=== PATIENT | female | born 1940 | race Caucasian/White ===

== ENCOUNTER → 2016-12-19 | Outpatient (CLI) | payer MEDICARE, OTHER ==
[~2016-12-19] MED LIST: ACET-1304; LEVO125T59; LOSA50TA26; PREMARIN
== END | disposition home or self-care (01) ==
LOC: LAB 09:30
PROVIDERS: ATTEND Family Medicine
DX: Z86.79 Personal history of other diseases of the circulatory system (principal)
CPT/HCPCS: 36415; 85652; 86141; 87040

== ENCOUNTER → 2017-03-04 | Outpatient (CLI) | payer MEDICARE, OTHER | END | disposition home or self-care (01) | LOC: XYW 10:24 | PROVIDERS: ATTEND Family Medicine | DX: I95.1 Orthostatic hypotension (principal); I31.3 Pericardial effusion (noninflammatory); I07.1 Rheumatic tricuspid insufficiency | CPT/HCPCS: 93306 ==

== ENCOUNTER → 2017-04-07 | Outpatient (CLI) | payer MEDICARE, OTHER | END | disposition home or self-care (01) | LOC: Rad HDHVI 10:07 | PROVIDERS: ATTEND Internal Medicine Cardiovascular Disease | DX: I95.9 Hypotension, unspecified (principal); E10.43 Type 1 diabetes mellitus with diabetic autonomic (poly)neuropathy | CPT/HCPCS: 93880 ==

== ENCOUNTER → 2017-04-21 | Outpatient (CLI) | payer MEDICARE, OTHER ==
[~2017-04-21] VITALS: Ht 170.2 cm; Wt 68.9 kg
[~2017-04-21] MED LIST changes: +D5W 5% IV SCH; +DIPYRIDAMOLE (5MG/ML) 10 ML VIAL IV ONE; +DIPYRIDAMOLE IV SCH
[2017-04-21 12:47] LABS: Basophils # (auto) 0 uL; Basophils % (auto) 0.6 % (0.0-2.0); CONDITION Y; Eosinophils # (auto) 0.2 uL; Eosinophils % (auto) 3.7 % (0.0-7.0); Hematocrit 39.2 % (36.0-46.0); Hemoglobin 12.9 g/dL (12.2-16.2); Lymphocytes # (auto) 1.7 uL; Lymphocytes % (auto) 27.8 % (10.0-50.0); Mean Corpuscular Hemoglobin 31.4 pg (28.0-32.0); Mean Corpuscular Hgb Conc. 32.9 g/dL (32.0-36.0); Mean Corpuscular Volume 95.4 fL (80.0-100.0); Monocytes # (auto) 0.6 uL; Monocytes % (auto) 9.9 % (0.0-12.0); Neutrophils # (auto) 3.6 uL; Platelet Count (auto) 302 10^3/uL (140-450); Red Cell Distribution Width 13.2 % (11.6-16.0); White Blood Cell 6.2 10^3/uL (4.4-10.8)
[2017-04-21 13:42] LABS: Albumin 3.6 g/dL (3.4-5.0); BUN/Creatinine Ratio 28.4; Calcium 9.2 mg/dL (8.5-10.1)
[2017-04-21 13:47] LABS: Bilirubin, Direct 0.1 mg/dL (0-0.2); Bilirubin, Total 0.5 mg/dL (0.2-1.0); Total Protein 7.2 g/dL (6.4-8.2)
== END | disposition home or self-care (01) ==
LOC: Rad HDHVI 07:51
PROVIDERS: ATTEND Internal Medicine Cardiovascular Disease
DX: E03.9 Hypothyroidism, unspecified (principal); I11.0 Hypertensive heart disease with heart failure; I50.9 Heart failure, unspecified; E11.9 Type 2 diabetes mellitus without complications; K74.1 Hepatic sclerosis; N39.0 Urinary tract infection, site not specified; E55.9 Vitamin D deficiency, unspecified; D64.9 Anemia, unspecified; E78.00 Pure hypercholesterolemia, unspecified; I31.3 Pericardial effusion (noninflammatory); I07.1 Rheumatic tricuspid insufficiency; Z82.79 Family history of other congenital malformations, deformations and chromosomal abnormalities
CPT/HCPCS: 36415; 78452; 80048; 80061; 80076; 82306; 82533; 83036; 84443; 85025; 93005; 96374; 96375; A9500; J1245

== ENCOUNTER → 2017-05-22 | Outpatient (CLI) | payer MEDICARE, OTHER ==
[~2017-05-22] MED LIST changes: -D5W 5% IV SCH; -DIPYRIDAMOLE (5MG/ML) 10 ML VIAL IV ONE; -DIPYRIDAMOLE IV SCH; +IOHEXOL 350 MG/ML 100ML IJ ONE
[2017-05-22 11:35] VITALS: BP 175/77
[2017-05-22 12:20] VITALS: BP 134/71
== END | disposition home or self-care (01) ==
LOC: Rad HDHVI 10:30
PROVIDERS: ATTEND Internal Medicine Cardiovascular Disease
DX: I67.82 Cerebral ischemia (principal); I65.21 Occlusion and stenosis of right carotid artery
CPT/HCPCS: 70496; 82565; G0463; Q9967

== ENCOUNTER 2017-06-24 11:53 | Inpatient (IN) | payer MEDICARE, BC ==
[~2017-06-24] VITALS: Ht 167.6 cm; Wt 70.0 kg
[~2017-06-24 11:53] MED LIST changes: -IOHEXOL 350 MG/ML 100ML IJ ONE
[2017-06-24] MEDS ORDERED: cloNIDine HCL 0.1 MG TAB ONE (16:26)
[2017-06-24] MEDS ORDERED: cloNIDine HCL 0.1 MG TAB PO ONE (16:45)
[2017-06-24 17:02] LABS: Basophils # (auto) 0.1 uL; Basophils % (auto) 0.6 % (0.0-2.0); Eosinophils # (auto) 0.3 uL; Hematocrit 39.1 % (36.0-46.0); Hemoglobin 13.2 g/dL (12.2-16.2); Lymphocytes # (auto) 2.5 uL; Mean Corpuscular Hemoglobin 32.1 pg (28.0-32.0); Mean Corpuscular Hgb Conc. 33.7 g/dL (32.0-36.0); Mean Corpuscular Volume 95.3 fL (80.0-100.0); Mean Platelet Volume 7.3 fL (6.9-10.8); Monocytes # (auto) 1.1 uL; Monocytes % (auto) 11.3 % (0.0-12.0); Neutrophils # (auto) 5.6 uL; Neutrophils % (auto) 59.1 % (37.0-80.0); Nucleated Red Blood Cells % 0.2 %; Platelet Count (auto) 316 10^3/uL (140-450); Red Cell Distribution Width 12.8 % (11.8-14.3); White Blood Cell 9.5 10^3/uL (4.4-10.8)
[2017-06-24 17:16] LABS: Albumin 3.3 g/dL (3.4-5.0); BUN/Creatinine Ratio 23.1; Bilirubin, Total 0.4 mg/dL (0.2-1.0); Calcium 9.3 mg/dL (8.5-10.1); Potassium 4.6 mmol/L (3.5-5.1)
[2017-06-24] MEDS ORDERED: ONDANSETRON HCL 4 MG/2 ML VIAL IV ONE (19:15)
[2017-06-24] MEDS ORDERED: SODIUM CHLORIDE 0.9% 1,000 ML IV ONE (19:15)
[2017-06-24 20:47] LABS: Urine Bilirubin Negative (Negative); Urine Blood Negative /uL (Negative); Urine Color Yellow (Yellow); Urine Glucose TRACE mg/dL (Normal); Urine Ketone 2+ (Negative); Urine Mucus FEW (None Seen); Urine Nitrite Negative (Negative); Urine RBC 1 /hpf (0 - 4); Urine Squamous Epithelial Cell FEW /hpf (<5); Urine Urobilinogen Normal (Negative); Urine pH 5.5 (5.0-8.0)
[2017-06-24] MEDS ORDERED: HYDROcodone-ACET 5/325MG TAB PO ONE (22:15)
[2017-06-24] MEDS ORDERED: NITROGLYCERIN 0.4 MG SL TAB SL PRN (22:30)
[2017-06-24] MEDS ORDERED: ONDANSETRON HCL 4 MG/2 ML VIAL IV PRN (22:30)
[2017-06-24] MEDS ORDERED: DEXTROSE (50%) 50ML SYRG IV PRN (22:30)
[2017-06-24] MEDS ORDERED: ACETAMINOPHEN 325 MG TAB PO PRN (22:30)
[2017-06-24] MEDS ORDERED: cefTRIAXone 1GM/50ML D5W 50 ML IV ONE (22:30)
[2017-06-24] MEDS ORDERED: MORPHINE SULF INJ 2 MG/ML SYRINGE 1ML IV PRN (22:30)
[2017-06-24] MEDS ORDERED: cloNIDine HCL 0.1 MG TAB PO PRN (22:30)
[2017-06-24] MEDS ORDERED: INSLISPI SC (23:35)
[2017-06-24] MEDS ORDERED: LEVO150T10 PO (23:36)
[2017-06-24] MEDS ORDERED: PROP60CA8 PO (23:40)
[2017-06-24] MEDS ORDERED: CHOL20007 OR (23:40)
[2017-06-24] MEDS ORDERED: CYAN500L3 PO (23:40)
[2017-06-24] MEDS ORDERED: LOSA50TA6 PO (23:40)
[2017-06-24] MEDS: SODIUM CHLORIDE 0.9% 1,000 ML IV SCH (23:45)
[2017-06-24] MEDS: ACCU-CHEK COMFORT CURVE STRIP VI SCH (23:51)
[2017-06-24] MEDS: InsuLIN REG 1unit/0.01ml Soln (100units/ml) SC SCH (23:51)
[2017-06-25 01:26] LABS: BUN/Creatinine Ratio 22.7; Calcium 8.3 mg/dL (8.5-10.1); Potassium 3.9 mmol/L (3.5-5.1)
[2017-06-25] MEDS: InsuLIN REG 1unit/0.01ml Soln (100units/ml) SC SCH ×3 (04:00→21:59)
[2017-06-25 04:11] LABS: Basophils # (auto) 0.1 uL; Basophils % (auto) 0.8 % (0.0-2.0); Eosinophils # (auto) 0.5 uL; Eosinophils % (auto) 5.2 % (0.0-7.0); Hematocrit 35.6 % (36.0-46.0); Hemoglobin 11.9 g/dL (12.2-16.2); Lymphocytes # (auto) 2.8 uL; Lymphocytes % (auto) 32.3 % (10.0-50.0); Mean Corpuscular Hemoglobin 31.8 pg (28.0-32.0); Mean Corpuscular Hgb Conc. 33.4 g/dL (32.0-36.0); Mean Corpuscular Volume 95.3 fL (80.0-100.0); Mean Platelet Volume 6.9 fL (6.9-10.8); Monocytes # (auto) 1.1 uL; Monocytes % (auto) 12.8 % (0.0-12.0); Neutrophils # (auto) 4.3 uL; Neutrophils % (auto) 48.9 % (37.0-80.0); Nucleated Red Blood Cells % 0.1 %; Platelet Count (auto) 263 10^3/uL (140-450); Red Cell Distribution Width 12.5 % (11.8-14.3); White Blood Cell 8.7 10^3/uL (4.4-10.8)
[2017-06-25] MEDS: ACCU-CHEK COMFORT CURVE STRIP VI SCH ×5 (04:21→21:59)
[2017-06-25 04:41] LABS: Albumin 2.6 g/dL (3.4-5.0); BUN/Creatinine Ratio 22.5; Calcium 8.4 mg/dL (8.5-10.1); Potassium 3.6 mmol/L (3.5-5.1)
[2017-06-25 04:44] LABS: Bilirubin, Total 0.3 mg/dL (0.2-1.0); Total Protein 6.2 g/dL (6.4-8.2)
[2017-06-25] MEDS: LEVOTHYROXINE SODIUM 50 MCG TAB PO SCH (07:23)
[2017-06-25 09:47] VITALS: BP 161/71
[2017-06-25] MEDS: ENOXAPARIN SOD 40 MG/0.4 ML SYRINGE SC SCH (10:00)
[2017-06-25] MEDS: SODIUM CHLORIDE 0.9% 1,000 ML IV SCH (10:54)
[2017-06-25] MEDS: HYDROcodone-ACET 5/325MG TAB PO PRN ×2 (12:39→20:38)
[2017-06-25] MEDS: FAMOTIDINE 20 MG TAB PO SCH ×2 (12:47→21:59)
[2017-06-25] MEDS: LOSARTAN POTASSIUM 50 MG TAB PO SCH (12:49)
[2017-06-25] MEDS ORDERED: DEXTROSE (50%) 50ML SYRG IV PRN (14:45)
[2017-06-25 17:00] VITALS: BP 119/75
[2017-06-25] MEDS ORDERED: TIZA4TAB3 PO (17:07)
[2017-06-25 22:00] VITALS: BP 156/67
[2017-06-25] MEDS ORDERED: cefTRIAXone 1GM/50ML D5W 50 ML IV SCH (22:00)
[2017-06-25] MEDS ORDERED: SODIUM CHLORIDE 0.9% 1,000 ML IV SCH (22:24)
[2017-06-26 05:00] VITALS: BP 125/50
[2017-06-26] MEDS: ACCU-CHEK COMFORT CURVE STRIP VI SCH ×2 (06:34→12:40)
[2017-06-26] MEDS: InsuLIN REG 1unit/0.01ml Soln (100units/ml) SC SCH ×2 (06:34→11:30)
[2017-06-26] MEDS: LEVOTHYROXINE SODIUM 50 MCG TAB PO SCH (06:34)
[2017-06-26 07:01] LABS: BUN/Creatinine Ratio 16.7; Calcium 8.5 mg/dL (8.5-10.1); Magnesium 2.2 mg/dL (1.6-2.6); Potassium 3.9 mmol/L (3.5-5.1)
[2017-06-26] MEDS: HYDROcodone-ACET 5/325MG TAB PO PRN (07:07)
[2017-06-26 08:00] VITALS: BP 161/71
[2017-06-26 09:00] VITALS: BP 128/70
[2017-06-26] MEDS: ENOXAPARIN SOD 40 MG/0.4 ML SYRINGE SC SCH (10:00)
[2017-06-26] MEDS: LOSARTAN POTASSIUM 50 MG TAB PO SCH (10:10)
[2017-06-26] MEDS: FAMOTIDINE 20 MG TAB PO SCH (10:11)
[2017-06-26] MEDS ORDERED: LACTULOSE 20Gm/30ML SOLN PO PRN (11:15)
[2017-06-26 12:09] VITALS: BP 128/70
[2017-06-26 13:00] VITALS: BP 148/76
== END 2017-06-26 15:20 | disposition home or self-care (01) | DRG 865 ==
LOC: ER 11:53 → TELE 11:54 → TELE-E-ADS 06-25 07:58 → TELE-WESTW 06-25 16:36
PROVIDERS: ADMIT Internal Medicine; ATTEND Internal Medicine
DX: B34.9 Viral infection, unspecified (principal); E11.10 Type 2 diabetes mellitus with ketoacidosis without coma; E87.1 Hypo-osmolality and hyponatremia; I11.0 Hypertensive heart disease with heart failure; I50.9 Heart failure, unspecified; E86.0 Dehydration; E11.65 Type 2 diabetes mellitus with hyperglycemia; E03.9 Hypothyroidism, unspecified; I87.8 Other specified disorders of veins; K59.00 Constipation, unspecified; M54.5 Low back pain; Z79.899 Other long term (current) drug therapy; Z88.6 Allergy status to analgesic agent; Z88.1 Allergy status to other antibiotic agents; Z88.5 Allergy status to narcotic agent; Z98.51 Tubal ligation status; Z80.9 Family history of malignant neoplasm, unspecified
CPT/HCPCS: 36415; 74000; 74176; 80048; 80053; 81001; 82010; 82962; 83036; 83735; 85025; 87086; 96361; 96374; 96375; J0696; J2405

== ENCOUNTER 2018-01-15 10:18 | Emergency (ER) | payer MEDICARE, OTHER ==
[~2018-01-15] VITALS: Ht 170.2 cm; Wt 68.0 kg
[~2018-01-15 10:18] MED LIST changes: +CHOL20007 OR; +CYAN500L3 PO; +INSLISPI SC; -LEVO125T59; +LEVO150T10 PO; -LOSA50TA26; +LOSA50TA6 PO; -PREMARIN; +PROP60CA8 PO; +TIZA4TAB3 PO
[2018-01-15 10:35] VITALS: BP 184/79
[2018-01-15] MEDS ORDERED: ASPirin 81 mg TAB PO ONE (10:45)
[2018-01-15] MEDS ORDERED: PANTOPRAZOLE 40 MG/10 ML VIAL IV ONE (10:45)
[2018-01-15 11:06] LABS: INR 0.95 (0.9-1.15); Partial Thromboplastin Time 28.6 sec (22.64-33.71); Prothrombin Time 10.3 sec (9.37-12.3)
[2018-01-15 11:11] LABS: Albumin 3.7 g/dL (3.4-5.0); Anion Gap 10 (5-15); Blood Urea Nitrogen 16 mg/dL (7-18); Calcium 9.4 mg/dL (8.5-10.1); Carbon Dioxide 26 mmol/L (21-32); Chloride 99 mmol/L (98-107); Glucose 175 mg/dL (74-106); Potassium 3.8 mmol/L (3.5-5.1); Sodium 135 mmol/L (136-145)
[2018-01-15 11:13] LABS: Alanine Aminotransferase 18 U/L (13-56); Aspartate Aminotransferase 19 U/L (15-37); BUN/Creatinine Ratio 23.9; GFR African American 109 mL/min; GFR Non-African American 90 mL/min
[2018-01-15 11:15] LABS: Alkaline Phosphatase 67 U/L (45-117); Bilirubin, Total 0.6 mg/dL (0.2-1.0)
[2018-01-15 11:33] LABS: Basophils # (auto) 0 uL; Basophils % (auto) 0.4 % (0.0-2.0); Eosinophils # (auto) 0.3 uL; Eosinophils % (auto) 3.6 % (0.0-7.0); Hematocrit 39.2 % (36.0-46.0); Hemoglobin 13.1 g/dL (12.2-16.2); Lymphocytes # (auto) 2.5 uL; Lymphocytes % (auto) 30.4 % (10.0-50.0); Mean Corpuscular Hemoglobin 31.6 pg (28.0-32.0); Mean Corpuscular Hgb Conc. 33.3 g/dL (32.0-36.0); Mean Corpuscular Volume 94.6 fL (80.0-100.0); Monocytes # (auto) 0.8 uL; Monocytes % (auto) 9.8 % (0.0-12.0); Neutrophils # (auto) 4.6 uL; Neutrophils % (auto) 55.8 % (37.0-80.0); Platelet Count (auto) 289 10^3/uL (140-450); Red Blood Cells 4.14 10^6/uL (4.0-5.20); Red Cell Distribution Width 12.8 % (11.8-14.3); White Blood Cell 8.2 10^3/uL (4.4-10.8)
== END 2018-01-15 12:35 | disposition home or self-care (01) ==
LOC: ER 10:18
DX: R07.89 Other chest pain (principal); K21.9 Gastro-esophageal reflux disease without esophagitis; I11.0 Hypertensive heart disease with heart failure; I50.9 Heart failure, unspecified; E11.9 Type 2 diabetes mellitus without complications; E78.5 Hyperlipidemia, unspecified; Z79.4 Long term (current) use of insulin; Z88.6 Allergy status to analgesic agent; Z88.8 Allergy status to other drugs, medicaments and biological substances; Z98.51 Tubal ligation status
CPT/HCPCS: 36415; 71045; 80053; 83735; 83880; 84484; 85025; 85610; 85730; 93005; 94761; 96374; 99285; C9113

== ENCOUNTER 2018-01-31 08:48 | Inpatient (IN) | payer MEDICARE, OTHER ==
[~2018-01-31] VITALS: Ht 170.2 cm; Wt 77.9 kg
[2018-01-31 09:33] LABS: Basophils # (auto) 0.1 uL; Basophils % (auto) 0.8 % (0.0-2.0); Eosinophils # (auto) 0.3 uL; Eosinophils % (auto) 3.2 % (0.0-7.0); Hematocrit 42.9 % (36.0-46.0); Hemoglobin 14.4 g/dL (12.2-16.2); Lymphocytes # (auto) 2.5 uL; Lymphocytes % (auto) 27.5 % (10.0-50.0); Mean Corpuscular Hemoglobin 31.7 pg (28.0-32.0); Mean Corpuscular Hgb Conc. 33.6 g/dL (32.0-36.0); Mean Corpuscular Volume 94.6 fL (80.0-100.0); Monocytes # (auto) 0.8 uL; Monocytes % (auto) 8.7 % (0.0-12.0); Neutrophils # (auto) 5.4 uL; Neutrophils % (auto) 59.8 % (37.0-80.0); Platelet Count (auto) 306 10^3/uL (140-450); Red Blood Cells 4.54 10^6/uL (4.0-5.20)
[2018-01-31 09:50] LABS: Blood Urea Nitrogen 14 mg/dL (7-18); Calcium 9.5 mg/dL (8.5-10.1); Chloride 100 mmol/L (98-107); Potassium 3.9 mmol/L (3.5-5.1); Sodium 137 mmol/L (136-145)
[2018-01-31 09:54] LABS: Alanine Aminotransferase 16 U/L (13-56); Albumin 3.7 g/dL (3.4-5.0); Anion Gap 10 (5-15); Aspartate Aminotransferase 17 U/L (15-37); Carbon Dioxide 27 mmol/L (21-32); GFR African American 104 mL/min; GFR Non-African American 86 mL/min; Glucose 154 mg/dL (74-106); Lipase 51 U/L (73-393)
[2018-01-31] MEDS ORDERED: SODIUM CHLORIDE 0.9% 1,000 ML IV ONE (09:57)
[2018-01-31 10:00] LABS: Alkaline Phosphatase 59 U/L (45-117); Bilirubin, Total 0.6 mg/dL (0.2-1.0); Total Protein 7.9 g/dL (6.4-8.2)
[2018-01-31] MEDS ORDERED: PANTOPRAZOLE 40 MG/10 ML VIAL IV ONE (10:00)
[2018-01-31] MEDS ORDERED: ONDANSETRON HCL 4 MG/2 ML VIAL IV ONE (10:00)
[2018-01-31] MEDS ORDERED: INSULIN PUMP SC (11:29)
[2018-01-31] MEDS ORDERED: HYDROmorphone HCL 2 MG/ML VL IV ONE (11:45)
[2018-01-31] MEDS ORDERED: METOCLOPRAMIDE HCL 5MG/ml INJ 2ml VIAL IV ONE (11:45)
[2018-01-31] MEDS ORDERED: TEMAZEPAM 15 MG CAP PO PRN (12:30)
[2018-01-31] MEDS ORDERED: NITROGLYCERIN 0.4 MG SL TAB SL PRN (12:30)
[2018-01-31] MEDS ORDERED: MORPHINE SULFATE 8mg/ml INJ SDV IV PRN (12:30)
[2018-01-31] MEDS ORDERED: ACETAMINOPHEN 325 MG TAB PO PRN (12:30)
[2018-01-31] MEDS ORDERED: cloNIDine HCL 0.1 MG TAB PO PRN (12:30)
[2018-01-31] MEDS ORDERED: PANTOPRAZOLE 40 MG TAB PO ONE (12:30)
[2018-01-31] MEDS ORDERED: DEXTROSE (50%) 50ML SYRG IV PRN (12:30)
[2018-01-31] MEDS ORDERED: FAMOTIDINE 20 MG TAB PO SCH (13:00)
[2018-01-31 13:35] VITALS: BP 171/77
[2018-01-31 13:40] LABS: Urine Bacteria NONE SEEN /hpf (None Seen); Urine Blood Negative /uL (Negative); Urine Specific Gravity 1.012 (1.001-1.035); Urine WBC 6 /hpf (0 - 5)
[2018-01-31] MEDS: PROPRANOLOL HCL 20 MG TAB PO SCH ×2 (15:06→15:08)
[2018-01-31] MEDS: TIZANIDINE 4MG PO SCH ×2 (15:06→21:25)
[2018-01-31] MEDS: SODIUM CHLOR 0.9% PF (SALINE LOCK) 10ML VIAL/SYR IV SCH ×2 (15:07→21:10)
[2018-01-31] MEDS: ONDANSETRON HCL 4 MG/2 ML VIAL IV PRN (16:21)
[2018-01-31] MEDS: HYDROcodone-ACET 5/325MG TAB PO PRN (16:22)
[2018-01-31] MEDS: ACCU-CHEK COMFORT CURVE STRIP VI SCH ×2 (16:24→21:27)
[2018-01-31] MEDS: InsuLIN REG 1unit/0.01ml Soln (100units/ml) SC SCH ×2 (16:25→21:25)
[2018-01-31 17:33] VITALS: BP 179/75
[2018-01-31] MEDS: HYDROmorphone HCL 2 MG/ML VL IV PRN ×2 (18:08→23:18)
[2018-01-31 18:45] VITALS: BP 145/64
[2018-01-31] MEDS ORDERED: VANCOMYCIN PER PHARMACY 0 MG IV SCH (20:45)
[2018-01-31] MEDS ORDERED: cefTRIAXone 1GM/10ml IVPUSH 10 ML IV ONE (20:45)
[2018-01-31] MEDS ORDERED: VANCOMYCIN 1GM/250ML 250 ML IV ONE (21:00)
[2018-01-31] MEDS: PANTOPRAZOLE 40 MG/10 ML VIAL IV SCH (21:10)
[2018-01-31 21:58] VITALS: BP 144/60
[2018-02-01 05:00] VITALS: BP 126/58
[2018-02-01] MEDS: SODIUM CHLOR 0.9% PF (SALINE LOCK) 10ML VIAL/SYR IV SCH ×3 (05:38→21:59)
[2018-02-01] MEDS: TIZANIDINE 4MG PO SCH ×3 (05:38→22:00)
[2018-02-01] MEDS: HYDROmorphone HCL 2 MG/ML VL IV PRN (05:39)
[2018-02-01] MEDS: InsuLIN REG 1unit/0.01ml Soln (100units/ml) SC SCH ×4 (05:45→22:00)
[2018-02-01] MEDS: ACCU-CHEK COMFORT CURVE STRIP VI SCH ×4 (05:46→22:35)
[2018-02-01] MEDS: PROPRANOLOL HCL 20 MG TAB PO SCH ×3 (06:20→22:00)
[2018-02-01] MEDS: LEVOTHYROXINE SODIUM 50 MCG TAB PO SCH (06:20)
[2018-02-01 06:50] LABS: Basophils # (auto) 0.1 uL; Basophils % (auto) 0.9 % (0.0-2.0); Eosinophils # (auto) 0.3 uL; Eosinophils % (auto) 4.3 % (0.0-7.0); Hematocrit 36.2 % (36.0-46.0); Lymphocytes # (auto) 2.8 uL; Lymphocytes % (auto) 38.3 % (10.0-50.0); Mean Corpuscular Hemoglobin 31.6 pg (28.0-32.0); Mean Corpuscular Hgb Conc. 33.2 g/dL (32.0-36.0); Mean Corpuscular Volume 95.4 fL (80.0-100.0); Monocytes # (auto) 0.8 uL; Neutrophils # (auto) 3.3 uL; Neutrophils % (auto) 45.5 % (37.0-80.0); Platelet Count (auto) 237 10^3/uL (140-450); Red Cell Distribution Width 13.1 % (11.8-14.3); White Blood Cell 7.2 10^3/uL (4.4-10.8)
[2018-02-01 07:08] LABS: Albumin 2.8 g/dL (3.4-5.0); BUN/Creatinine Ratio 17.4; Calcium 8.3 mg/dL (8.5-10.1); Potassium 3.6 mmol/L (3.5-5.1)
[2018-02-01 07:11] LABS: Bilirubin, Total 0.3 mg/dL (0.2-1.0); Total Protein 5.8 g/dL (6.4-8.2)
[2018-02-01 08:30] VITALS: BP 127/61
[2018-02-01 08:45] VITALS: BP 127/61
[2018-02-01] MEDS: CHOLECALCIFEROL (VITD3) 1,000 UNIT TAB PO SCH (09:36)
[2018-02-01] MEDS: PANTOPRAZOLE 40 MG/10 ML VIAL IV SCH ×2 (09:36→21:58)
[2018-02-01] MEDS: LOSARTAN POTASSIUM 50 MG TAB PO SCH (09:37)
[2018-02-01] MEDS: MULTIPLE VITAMIN TAB PO SCH (09:37)
[2018-02-01] MEDS: CYANOCOBALAMIN 500 MCG TAB PO SCH (09:37)
[2018-02-01] MEDS ORDERED: PANTOPRAZOLE 40 MG TAB PO SCH (10:00)
[2018-02-01 13:00] VITALS: BP 116/59
[2018-02-01] MEDS: HYDROcodone-ACET 5/325MG TAB PO PRN ×2 (15:59→23:03)
[2018-02-01] MEDS ORDERED: VANCOMYCIN 1GM/250ML 250 ML IV SCH (16:00)
[2018-02-01 17:00] VITALS: BP 162/70
[2018-02-01] MEDS: cefTRIAXone 1GM/10ml IVPUSH 10 ML IV SCH (21:59)
[2018-02-01 22:00] VITALS: BP 144/65
[2018-02-02 04:43] VITALS: BP 118/56
[2018-02-02] MEDS: SODIUM CHLOR 0.9% PF (SALINE LOCK) 10ML VIAL/SYR IV SCH ×3 (05:31→21:53)
[2018-02-02] MEDS: PROPRANOLOL HCL 20 MG TAB PO SCH ×3 (05:31→21:50)
[2018-02-02] MEDS: TIZANIDINE 4MG PO SCH ×4 (05:34→22:15)
[2018-02-02] MEDS: ACCU-CHEK COMFORT CURVE STRIP VI SCH ×4 (06:15→21:54)
[2018-02-02 06:37] LABS: Basophils # (auto) 0.1 uL; Basophils % (auto) 0.9 % (0.0-2.0); Eosinophils # (auto) 0.3 uL; Eosinophils % (auto) 4.3 % (0.0-7.0); Hematocrit 39.4 % (36.0-46.0); Hemoglobin 13.1 g/dL (12.2-16.2); Lymphocytes # (auto) 2.7 uL; Lymphocytes % (auto) 35.8 % (10.0-50.0); Mean Corpuscular Hemoglobin 31.5 pg (28.0-32.0); Mean Corpuscular Hgb Conc. 33.2 g/dL (32.0-36.0); Monocytes # (auto) 0.8 uL; Monocytes % (auto) 11.2 % (0.0-12.0); Neutrophils # (auto) 3.6 uL; Neutrophils % (auto) 47.8 % (37.0-80.0); Nucleated Red Blood Cells % 0.1 %; Platelet Count (auto) 282 10^3/uL (140-450); Red Blood Cells 4.15 10^6/uL (4.0-5.20); Red Cell Distribution Width 12.9 % (11.8-14.3); White Blood Cell 7.5 10^3/uL (4.4-10.8)
[2018-02-02 06:56] LABS: BUN/Creatinine Ratio 7.7; Magnesium 2.3 mg/dL (1.6-2.6); Potassium 3.9 mmol/L (3.5-5.1)
[2018-02-02] MEDS: InsuLIN REG 1unit/0.01ml Soln (100units/ml) SC SCH ×4 (07:00→21:53)
[2018-02-02] MEDS: LEVOTHYROXINE SODIUM 50 MCG TAB PO SCH (07:00)
[2018-02-02 08:00] VITALS: BP 157/62
[2018-02-02 08:42] LABS: Partial Thromboplastin Time 28.2 sec (23.78-33.04); Prothrombin Time 10.7 sec (9.27-12.13)
[2018-02-02] MEDS: PANTOPRAZOLE 40 MG/10 ML VIAL IV SCH (08:47)
[2018-02-02] MEDS: HYDROmorphone HCL 2 MG/ML VL IV PRN (08:47)
[2018-02-02 09:00] VITALS: BP 166/69
[2018-02-02] MEDS: ONDANSETRON HCL 4 MG/2 ML VIAL IV PRN (10:23)
[2018-02-02] MEDS ORDERED: LIDOCAINE VISCOUS 2% 15ML UD ONE (10:35)
[2018-02-02] MEDS ORDERED: SODIUM CHLORIDE LOCK 10 ML ONE (10:35)
[2018-02-02] MEDS ORDERED: fentaNYL CITRATE 100 MCG/2 ML VL ONE (10:35)
[2018-02-02] MEDS ORDERED: MIDAZOLAM HCL 5 MG/ML-1ML VIAL ONE (10:35)
[2018-02-02] MEDS ORDERED: diphenhdrAMINE HCL 50 MG/1 ML VL ONE (10:35)
[2018-02-02] MEDS: LOSARTAN POTASSIUM 50 MG TAB PO SCH (14:21)
[2018-02-02] MEDS: CYANOCOBALAMIN 500 MCG TAB PO SCH (14:22)
[2018-02-02] MEDS: MULTIPLE VITAMIN TAB PO SCH (14:22)
[2018-02-02] MEDS: CHOLECALCIFEROL (VITD3) 1,000 UNIT TAB PO SCH (14:22)
[2018-02-02 17:00] VITALS: BP 138/107
[2018-02-02] MEDS: cefTRIAXone 1GM/10ml IVPUSH 10 ML IV SCH (21:53)
[2018-02-02 22:00] VITALS: BP 147/61
[2018-02-02] MEDS: HYDROcodone-ACET 5/325MG TAB PO PRN (22:07)
[2018-02-02] MEDS ORDERED: D5W/ SOD CHL 0.9%/KCL 20MEQ 1,000 ML IV SCH (23:00)
[2018-02-03] VITALS (8 sets, daily range): BP systolic 142–167; BP diastolic 58–78
[2018-02-03] MEDS: InsuLIN REG 1unit/0.01ml Soln (100units/ml) SC SCH ×4 (05:49→22:00)
[2018-02-03] MEDS: SODIUM CHLOR 0.9% PF (SALINE LOCK) 10ML VIAL/SYR IV SCH ×3 (06:09→22:20)
[2018-02-03] MEDS: LEVOTHYROXINE SODIUM 50 MCG TAB PO SCH (06:10)
[2018-02-03] MEDS: PROPRANOLOL HCL 20 MG TAB PO SCH ×4 (06:10→22:21)
[2018-02-03] MEDS: HYDROcodone-ACET 5/325MG TAB PO PRN ×3 (06:10→22:28)
[2018-02-03] MEDS: ACCU-CHEK COMFORT CURVE STRIP VI SCH ×4 (06:11→22:25)
[2018-02-03] MEDS: cefTRIAXone 1GM/10ml IVPUSH 10 ML IV SCH (10:04)
[2018-02-03] MEDS: HYDROmorphone HCL 2 MG/ML VL IV PRN ×3 (10:04→22:28)
[2018-02-03] MEDS: LOSARTAN POTASSIUM 50 MG TAB PO SCH (10:05)
[2018-02-03] MEDS: AZITHROMYCIN 250 MG TAB PO SCH (10:05)
[2018-02-03] MEDS: CYANOCOBALAMIN 500 MCG TAB PO SCH (10:06)
[2018-02-03] MEDS: MULTIPLE VITAMIN TAB PO SCH (10:06)
[2018-02-03] MEDS: CHOLECALCIFEROL (VITD3) 1,000 UNIT TAB PO SCH (10:06)
[2018-02-03] MEDS: PANTOPRAZOLE 40 MG TAB PO SCH (10:06)
[2018-02-03] MEDS: ALBUTEROL SULF 2.5 MG/0.5ML(0.5%) NEB SOLN NEB SCH ×2 (12:16→18:52)
[2018-02-03] MEDS: TIZANIDINE 4MG PO SCH ×2 (14:00→22:00)
[2018-02-03] MEDS ORDERED: ACETYLCYSTEINE 10 %(100MG/ML) SOL 4ML NEB SCH (14:00)
[2018-02-03] MEDS: ACETYLCYSTEINE 10 %(100MG/ML) SOL 4ML NEB SCH (18:53)
[2018-02-03] MEDS ORDERED: POTASSIUM CHLORIDE 20 MEQ in D5W 5% 1,000 ML IV SCH (23:00)
[2018-02-04] MEDS: ACETYLCYSTEINE 10 %(100MG/ML) SOL 4ML NEB SCH ×4 (01:01→19:31)
[2018-02-04] MEDS: ALBUTEROL SULF 2.5 MG/0.5ML(0.5%) NEB SOLN NEB SCH ×4 (01:01→19:30)
[2018-02-04 05:00] VITALS: BP 147/72
[2018-02-04] MEDS: TIZANIDINE 4MG PO SCH ×3 (06:00→21:49)
[2018-02-04] MEDS: SODIUM CHLOR 0.9% PF (SALINE LOCK) 10ML VIAL/SYR IV SCH ×3 (06:11→21:51)
[2018-02-04] MEDS: LEVOTHYROXINE SODIUM 50 MCG TAB PO SCH (06:12)
[2018-02-04] MEDS: InsuLIN REG 1unit/0.01ml Soln (100units/ml) SC SCH ×4 (06:12→21:50)
[2018-02-04] MEDS: PROPRANOLOL HCL 20 MG TAB PO SCH ×3 (06:12→21:51)
[2018-02-04] MEDS: ACCU-CHEK COMFORT CURVE STRIP VI SCH ×4 (06:12→21:50)
[2018-02-04 06:23] LABS: Basophils # (auto) 0.1 uL; Basophils % (auto) 0.9 % (0.0-2.0); Eosinophils # (auto) 0.6 uL; Eosinophils % (auto) 7.9 % (0.0-7.0); Hematocrit 37.9 % (36.0-46.0); Hemoglobin 12.6 g/dL (12.2-16.2); Lymphocytes # (auto) 2.7 uL; Lymphocytes % (auto) 35.2 % (10.0-50.0); Mean Corpuscular Hemoglobin 31.6 pg (28.0-32.0); Mean Corpuscular Hgb Conc. 33.2 g/dL (32.0-36.0); Mean Corpuscular Volume 95.2 fL (80.0-100.0); Monocytes % (auto) 12.7 % (0.0-12.0); Neutrophils # (auto) 3.3 uL; Neutrophils % (auto) 43.3 % (37.0-80.0); Platelet Count (auto) 241 10^3/uL (140-450); Red Blood Cells 3.98 10^6/uL (4.0-5.20); Red Cell Distribution Width 13.1 % (11.8-14.3); White Blood Cell 7.6 10^3/uL (4.4-10.8)
[2018-02-04 06:35] LABS: Potassium 4.2 mmol/L (3.5-5.1)
[2018-02-04 06:39] LABS: Albumin 3.1 g/dL (3.4-5.0); BUN/Creatinine Ratio 13.2; Calcium 9.1 mg/dL (8.5-10.1)
[2018-02-04 06:44] LABS: Bilirubin, Total 0.3 mg/dL (0.2-1.0); Total Protein 6.6 g/dL (6.4-8.2)
[2018-02-04 08:10] VITALS: BP 158/72
[2018-02-04 08:42] VITALS: BP 162/80
[2018-02-04] MEDS: AZITHROMYCIN 250 MG TAB PO SCH (10:29)
[2018-02-04] MEDS: CYANOCOBALAMIN 500 MCG TAB PO SCH (10:29)
[2018-02-04] MEDS: PANTOPRAZOLE 40 MG TAB PO SCH (10:29)
[2018-02-04] MEDS: CHOLECALCIFEROL (VITD3) 1,000 UNIT TAB PO SCH (10:29)
[2018-02-04] MEDS: LOSARTAN POTASSIUM 50 MG TAB PO SCH (10:30)
[2018-02-04] MEDS: MULTIPLE VITAMIN TAB PO SCH (10:30)
[2018-02-04] MEDS: amLODIPine BESYLATE 5 MG TAB PO SCH (10:45)
[2018-02-04] MEDS: DOCUSATE SOD 100 MG CAP PO PRN (10:52)
[2018-02-04 12:36] VITALS: BP 178/76
[2018-02-04 17:00] VITALS: BP 155/68
[2018-02-04] MEDS: cefTRIAXone 1GM/10ml IVPUSH 10 ML IV SCH (21:51)
[2018-02-04 22:00] VITALS: BP 132/59
[2018-02-04] MEDS: HYDROcodone-ACET 5/325MG TAB PO PRN (22:21)
[2018-02-05] MEDS: ALBUTEROL SULF 2.5 MG/0.5ML(0.5%) NEB SOLN NEB SCH ×2 (00:36→07:29)
[2018-02-05] MEDS: ACETYLCYSTEINE 10 %(100MG/ML) SOL 4ML NEB SCH ×2 (00:36→07:29)
[2018-02-05 05:00] VITALS: BP 150/77
[2018-02-05] MEDS: SODIUM CHLOR 0.9% PF (SALINE LOCK) 10ML VIAL/SYR IV SCH ×3 (05:24→22:20)
[2018-02-05] MEDS: TIZANIDINE 4MG PO SCH ×3 (05:24→22:00)
[2018-02-05] MEDS: HYDROmorphone HCL 2 MG/ML VL IV PRN ×3 (05:25→22:21)
[2018-02-05] MEDS: PROPRANOLOL HCL 20 MG TAB PO SCH ×3 (05:25→22:21)
[2018-02-05] MEDS: InsuLIN REG 1unit/0.01ml Soln (100units/ml) SC SCH ×4 (06:34→22:00)
[2018-02-05] MEDS: LEVOTHYROXINE SODIUM 50 MCG TAB PO SCH (06:34)
[2018-02-05] MEDS: ACCU-CHEK COMFORT CURVE STRIP VI SCH ×4 (06:35→22:20)
[2018-02-05 08:10] VITALS: BP 139/68
[2018-02-05 09:00] VITALS: BP 139/68
[2018-02-05] MEDS: AZITHROMYCIN 250 MG TAB PO SCH (10:21)
[2018-02-05] MEDS: MULTIPLE VITAMIN TAB PO SCH (10:21)
[2018-02-05] MEDS: LOSARTAN POTASSIUM 50 MG TAB PO SCH (10:23)
[2018-02-05] MEDS: amLODIPine BESYLATE 5 MG TAB PO SCH (10:23)
[2018-02-05] MEDS: CYANOCOBALAMIN 500 MCG TAB PO SCH (10:24)
[2018-02-05] MEDS: PANTOPRAZOLE 40 MG TAB PO SCH (10:24)
[2018-02-05] MEDS: CHOLECALCIFEROL (VITD3) 1,000 UNIT TAB PO SCH (10:24)
[2018-02-05 13:00] VITALS: BP 159/68
[2018-02-05] MEDS: DOCUSATE SOD 100 MG CAP PO PRN (13:48)
[2018-02-05 17:00] VITALS: BP 142/61
[2018-02-05 22:00] VITALS: BP 149/70
[2018-02-05] MEDS: cefTRIAXone 1GM/10ml IVPUSH 10 ML IV SCH (22:20)
[2018-02-06 05:00] VITALS: BP 145/69
[2018-02-06 05:17] LABS: Basophils # (auto) 0.1 uL; Basophils % (auto) 0.9 % (0.0-2.0); Eosinophils # (auto) 0.5 uL; Eosinophils % (auto) 6.1 % (0.0-7.0); Hematocrit 38.8 % (36.0-46.0); Hemoglobin 13.1 g/dL (12.2-16.2); Lymphocytes % (auto) 37.2 % (10.0-50.0); Mean Corpuscular Hemoglobin 31.7 pg (28.0-32.0); Mean Corpuscular Hgb Conc. 33.6 g/dL (32.0-36.0); Mean Corpuscular Volume 94.3 fL (80.0-100.0); Monocytes # (auto) 0.8 uL; Monocytes % (auto) 10.1 % (0.0-12.0); Neutrophils # (auto) 3.6 uL; Neutrophils % (auto) 45.7 % (37.0-80.0); Platelet Count (auto) 260 10^3/uL (140-450); Red Blood Cells 4.12 10^6/uL (4.0-5.20); Red Cell Distribution Width 12.9 % (11.8-14.3)
[2018-02-06 05:42] LABS: Albumin 3.2 g/dL (3.4-5.0); BUN/Creatinine Ratio 19.1; Bilirubin, Total 0.3 mg/dL (0.2-1.0); Calcium 8.8 mg/dL (8.5-10.1); Potassium 4.4 mmol/L (3.5-5.1); Total Protein 6.6 g/dL (6.4-8.2)
[2018-02-06] MEDS: TIZANIDINE 4MG PO SCH ×3 (06:00→21:24)
[2018-02-06] MEDS: PROPRANOLOL HCL 20 MG TAB PO SCH ×3 (06:15→21:24)
[2018-02-06] MEDS: LEVOTHYROXINE SODIUM 50 MCG TAB PO SCH (06:15)
[2018-02-06] MEDS: SODIUM CHLOR 0.9% PF (SALINE LOCK) 10ML VIAL/SYR IV SCH ×3 (06:16→21:25)
[2018-02-06] MEDS: InsuLIN REG 1unit/0.01ml Soln (100units/ml) SC SCH ×4 (06:16→21:37)
[2018-02-06] MEDS: ACCU-CHEK COMFORT CURVE STRIP VI SCH ×4 (06:16→21:25)
[2018-02-06] MEDS: HYDROcodone-ACET 5/325MG TAB PO PRN (07:44)
[2018-02-06] MEDS: DOCUSATE SOD 100 MG CAP PO PRN (07:45)
[2018-02-06 08:00] VITALS: BP 145/69
[2018-02-06 09:00] VITALS: BP 160/74
[2018-02-06] MEDS: CHOLECALCIFEROL (VITD3) 1,000 UNIT TAB PO SCH (10:59)
[2018-02-06] MEDS: MULTIPLE VITAMIN TAB PO SCH (11:00)
[2018-02-06] MEDS: LOSARTAN POTASSIUM 50 MG TAB PO SCH (11:00)
[2018-02-06] MEDS: AZITHROMYCIN 250 MG TAB PO SCH (11:00)
[2018-02-06] MEDS: PANTOPRAZOLE 40 MG TAB PO SCH (11:01)
[2018-02-06] MEDS: amLODIPine BESYLATE 5 MG TAB PO SCH (11:02)
[2018-02-06] MEDS: CYANOCOBALAMIN 500 MCG TAB PO SCH (11:03)
[2018-02-06 13:00] VITALS: BP 149/70
[2018-02-06] MEDS ORDERED: LACTULOSE 20Gm/30ML SOLN PO ONE (13:00)
[2018-02-06] MEDS ORDERED: DOCUSATE SOD 100 MG CAP PO PRN (13:15)
[2018-02-06] MEDS: PIPERACILLIN-TAZOB 3.375GM 100 ML IV SCH ×2 (14:28→20:15)
[2018-02-06 17:00] VITALS: BP 151/69
[2018-02-06 23:00] VITALS: BP 158/70
[2018-02-07] MEDS: PIPERACILLIN-TAZOB 3.375GM 100 ML IV SCH ×4 (01:34→19:32)
[2018-02-07 05:00] VITALS: BP 137/59
[2018-02-07] MEDS: PROPRANOLOL HCL 20 MG TAB PO SCH ×3 (05:57→21:57)
[2018-02-07] MEDS: SODIUM CHLOR 0.9% PF (SALINE LOCK) 10ML VIAL/SYR IV SCH ×3 (05:58→21:55)
[2018-02-07] MEDS: ACCU-CHEK COMFORT CURVE STRIP VI SCH ×4 (05:58→22:58)
[2018-02-07] MEDS: TIZANIDINE 4MG PO SCH ×3 (05:58→21:55)
[2018-02-07] MEDS: LEVOTHYROXINE SODIUM 50 MCG TAB PO SCH (05:58)
[2018-02-07] MEDS: InsuLIN REG 1unit/0.01ml Soln (100units/ml) SC SCH ×4 (06:24→22:00)
[2018-02-07] MEDS: HYDROcodone-ACET 5/325MG TAB PO PRN ×2 (06:54→17:45)
[2018-02-07 08:00] VITALS: BP 146/67
[2018-02-07] MEDS: CYANOCOBALAMIN 500 MCG TAB PO SCH (10:00)
[2018-02-07] MEDS: PANTOPRAZOLE 40 MG TAB PO SCH (11:50)
[2018-02-07] MEDS: CHOLECALCIFEROL (VITD3) 1,000 UNIT TAB PO SCH (11:50)
[2018-02-07] MEDS: AZITHROMYCIN 250 MG TAB PO SCH (11:50)
[2018-02-07] MEDS: MULTIPLE VITAMIN TAB PO SCH (11:50)
[2018-02-07] MEDS: amLODIPine BESYLATE 5 MG TAB PO SCH (11:51)
[2018-02-07 12:00] VITALS: BP 136/60
[2018-02-07] MEDS: LOSARTAN POTASSIUM 50 MG TAB PO SCH (12:30)
[2018-02-07 15:00] VITALS: BP 133/59
[2018-02-07 22:10] VITALS: BP 112/56
[2018-02-08] MEDS: PIPERACILLIN-TAZOB 3.375GM 100 ML IV SCH (02:05)
[2018-02-08] MEDS: HYDROcodone-ACET 5/325MG TAB PO PRN (02:06)
[2018-02-08] MEDS: TIZANIDINE 4MG PO SCH ×3 (06:00→21:37)
[2018-02-08 06:03] VITALS: BP 143/61
[2018-02-08] MEDS: SODIUM CHLOR 0.9% PF (SALINE LOCK) 10ML VIAL/SYR IV SCH ×3 (06:07→21:59)
[2018-02-08] MEDS: PROPRANOLOL HCL 20 MG TAB PO SCH ×3 (06:08→21:59)
[2018-02-08] MEDS: LEVOTHYROXINE SODIUM 50 MCG TAB PO SCH (06:08)
[2018-02-08] MEDS: ACCU-CHEK COMFORT CURVE STRIP VI SCH ×4 (06:09→21:59)
[2018-02-08] MEDS: InsuLIN REG 1unit/0.01ml Soln (100units/ml) SC SCH ×4 (06:42→22:00)
[2018-02-08 06:51] LABS: Basophils # (auto) 0.1 uL; Eosinophils # (auto) 0.5 uL; Hematocrit 37.9 % (36.0-46.0); Hemoglobin 12.7 g/dL (12.2-16.2); Lymphocytes # (auto) 2.4 uL; Lymphocytes % (auto) 31.9 % (10.0-50.0); Mean Corpuscular Hemoglobin 31.8 pg (28.0-32.0); Mean Corpuscular Hgb Conc. 33.4 g/dL (32.0-36.0); Mean Corpuscular Volume 95.4 fL (80.0-100.0); Monocytes # (auto) 0.8 uL; Neutrophils # (auto) 3.8 uL; Neutrophils % (auto) 50.1 % (37.0-80.0); Nucleated Red Blood Cells % 0.1 %; Platelet Count (auto) 244 10^3/uL (140-450); Red Blood Cells 3.98 10^6/uL (4.0-5.20); Red Cell Distribution Width 12.9 % (11.8-14.3); White Blood Cell 7.7 10^3/uL (4.4-10.8)
[2018-02-08 06:56] LABS: INR 0.98 (0.9-1.15); Partial Thromboplastin Time 28.9 sec (23.78-33.04); Prothrombin Time 10.5 sec (9.27-12.13)
[2018-02-08 07:02] LABS: BUN/Creatinine Ratio 24.2; Calcium 8.8 mg/dL (8.5-10.1); Potassium 4.1 mmol/L (3.5-5.1)
[2018-02-08 07:21] VITALS: BP 149/69
[2018-02-08 08:00] VITALS: BP 149/69
[2018-02-08] MEDS ORDERED: TEMAZEPAM 15 MG CAP PO PRN (09:30)
[2018-02-08] MEDS ORDERED: hydrALAZINE HCL 20 MG/ML VL IV PRN (09:30)
[2018-02-08] MEDS ORDERED: HYDROmorphone HCL 2 MG/ML VL IV PRN (09:30)
[2018-02-08] MEDS ORDERED: HYDROcodone-ACET 5/325MG TAB PO PRN (09:30)
[2018-02-08] MEDS ORDERED: LIDOCAINE HCL 2 %PF INJ 10ML AMP IJ ONE (09:36)
[2018-02-08] MEDS ORDERED: ETOMIDATE (2MG/ML) 20ML VIAL IV ONE (09:37)
[2018-02-08] MEDS ORDERED: ROCURONIUM 10MG/ML 10ML VIAL IV ONE (09:41)
[2018-02-08] MEDS: MULTIPLE VITAMIN TAB PO SCH (10:00)
[2018-02-08] MEDS: CYANOCOBALAMIN 500 MCG TAB PO SCH (10:00)
[2018-02-08] MEDS: CHOLECALCIFEROL (VITD3) 1,000 UNIT TAB PO SCH (10:00)
[2018-02-08] MEDS: amLODIPine BESYLATE 5 MG TAB PO SCH (10:00)
[2018-02-08] MEDS: PANTOPRAZOLE 40 MG TAB PO SCH (10:00)
[2018-02-08] MEDS: LOSARTAN POTASSIUM 50 MG TAB PO SCH (10:00)
[2018-02-08] MEDS ORDERED: CEFAZOLIN IV ONE (10:15)
[2018-02-08] MEDS ORDERED: D5W 5% IV ONE (10:15)
[2018-02-08] MEDS ORDERED: SUCCINYLCHOLINE CHLORIDE 20 MG/ML 10ML VIAL IV ONE (10:26)
[2018-02-08] MEDS ORDERED: MIDAZOLAM HCL 1MG/1ML-2 ML VIAL ONE (10:29)
[2018-02-08] MEDS ORDERED: ACCU-CHEK COMFORT CURVE STRIP VI ONE (10:45)
[2018-02-08] MEDS ORDERED: ONDANSETRON HCL 4 MG/2 ML VIAL IV ONE (10:45)
[2018-02-08] MEDS ORDERED: ePHEDrine SULFATE 50 MG/ML AMP ONE (10:51)
[2018-02-08] MEDS ORDERED: fentaNYL CITRATE 100 MCG/2 ML VL ONE (10:55)
[2018-02-08] MEDS ORDERED: GLYCOPYRROLATE 0.2 MG/ML 1ML VIAL ONE (11:13)
[2018-02-08] MEDS ORDERED: NEOSTIGMINE 1 MG/ML INJ (10mg/10ML VIAL) ONE (11:13)
[2018-02-08] MEDS: HYDROmorphone HCL 2 MG/ML VL IV PRN ×6 (11:40→12:43)
[2018-02-08] MEDS ORDERED: hydrALAZINE HCL 20 MG/ML VL IV ONE (12:10)
[2018-02-08] MEDS: ONDANSETRON HCL 4 MG/2 ML VIAL IV PRN (14:40)
[2018-02-08 16:00] VITALS: BP 151/57
[2018-02-08 22:00] VITALS: BP 126/50
[2018-02-09 04:48] VITALS: BP 123/55
[2018-02-09 05:58] LABS: Basophils # (auto) 0 uL; Basophils % (auto) 0.3 % (0.0-2.0); Eosinophils # (auto) 0.1 uL; Eosinophils % (auto) 1.3 % (0.0-7.0); Hematocrit 38.3 % (36.0-46.0); Hemoglobin 12.7 g/dL (12.2-16.2); Lymphocytes # (auto) 1.7 uL; Mean Corpuscular Hemoglobin 31.6 pg (28.0-32.0); Mean Corpuscular Hgb Conc. 33.3 g/dL (32.0-36.0); Mean Corpuscular Volume 94.8 fL (80.0-100.0); Monocytes # (auto) 0.9 uL; Monocytes % (auto) 9.5 % (0.0-12.0); Neutrophils # (auto) 7.1 uL; Neutrophils % (auto) 71.9 % (37.0-80.0); Nucleated Red Blood Cells % 0.1 %; Platelet Count (auto) 255 10^3/uL (140-450); Red Blood Cells 4.04 10^6/uL (4.0-5.20); Red Cell Distribution Width 13.2 % (11.8-14.3); White Blood Cell 9.9 10^3/uL (4.4-10.8)
[2018-02-09] MEDS: TIZANIDINE 4MG PO SCH (06:00)
[2018-02-09 06:13] LABS: Calcium 8.5 mg/dL (8.5-10.1)
[2018-02-09 06:15] LABS: BUN/Creatinine Ratio 31.5
[2018-02-09] MEDS: SODIUM CHLOR 0.9% PF (SALINE LOCK) 10ML VIAL/SYR IV SCH (06:47)
[2018-02-09] MEDS: ACCU-CHEK COMFORT CURVE STRIP VI SCH ×2 (06:48→11:11)
[2018-02-09] MEDS: PROPRANOLOL HCL 20 MG TAB PO SCH (06:48)
[2018-02-09] MEDS: LEVOTHYROXINE SODIUM 50 MCG TAB PO SCH (06:48)
[2018-02-09] MEDS: InsuLIN REG 1unit/0.01ml Soln (100units/ml) SC SCH ×2 (06:48→11:11)
[2018-02-09 07:31] VITALS: BP 125/47
[2018-02-09 09:00] VITALS: BP 125/44
[2018-02-09] MEDS: CHOLECALCIFEROL (VITD3) 1,000 UNIT TAB PO SCH (09:37)
[2018-02-09] MEDS: MULTIPLE VITAMIN TAB PO SCH (09:37)
[2018-02-09] MEDS: LOSARTAN POTASSIUM 50 MG TAB PO SCH (09:37)
[2018-02-09] MEDS: PANTOPRAZOLE 40 MG TAB PO SCH (09:38)
[2018-02-09] MEDS: amLODIPine BESYLATE 5 MG TAB PO SCH (09:38)
[2018-02-09] MEDS: CYANOCOBALAMIN 500 MCG TAB PO SCH (10:00)
[2018-02-09] MEDS ORDERED: PANT40T PO (10:42)
== END 2018-02-09 14:00 | disposition home or self-care (01) | DRG 417 ==
LOC: ER 08:48 → TELE-WESTW 08:49 → WEST WING 02-02 17:25
PROVIDERS: ADMIT Internal Medicine; ATTEND Internal Medicine
PROC: 0DB78ZX Excision of Stomach, Pylorus, Via Natural or Artificial Opening Endoscopic, Diagnostic (ICD-10-PCS; principal; 2018-02-02 12:05)
PROC: 0FT44ZZ Resection of Gallbladder, Percutaneous Endoscopic Approach (ICD-10-PCS; 2018-02-08)
DX: K82.8 Other specified diseases of gallbladder (principal); J69.0 Pneumonitis due to inhalation of food and vomit; G93.41 Metabolic encephalopathy; E44.1 Mild protein-calorie malnutrition; I13.0 Hypertensive heart and chronic kidney disease with heart failure and stage 1 through stage 4 chronic kidney disease, or unspecified chronic kidney disease; J98.11 Atelectasis; E11.21 Type 2 diabetes mellitus with diabetic nephropathy; E11.649 Type 2 diabetes mellitus with hypoglycemia without coma; K81.1 Chronic cholecystitis; I50.9 Heart failure, unspecified; E03.9 Hypothyroidism, unspecified; E78.5 Hyperlipidemia, unspecified; J44.9 Chronic obstructive pulmonary disease, unspecified; N18.2 Chronic kidney disease, stage 2 (mild); E11.22 Type 2 diabetes mellitus with diabetic chronic kidney disease; E06.3 Autoimmune thyroiditis; G24.9 Dystonia, unspecified; I25.10 Atherosclerotic heart disease of native coronary artery without angina pectoris; K21.9 Gastro-esophageal reflux disease without esophagitis; Z79.4 Long term (current) use of insulin; Z87.891 Personal history of nicotine dependence; Z96.41 Presence of insulin pump (external) (internal); Z88.6 Allergy status to analgesic agent; Z88.8 Allergy status to other drugs, medicaments and biological substances; Z88.5 Allergy status to narcotic agent; Z79.899 Other long term (current) drug therapy; Z98.51 Tubal ligation status; Z68.26 Body mass index [BMI] 26.0-26.9, adult
CPT/HCPCS: 36415; 71045; 71250; 74176; 76705; 78226; 80048; 80053; 81001; 82247; 82962; 83036; 83690; 83735; 83880; 84443; 84484; 85025; 85610; 85730; 86850; 86900; 86901; 87040; 87205; 93005; 93306; 94640; 96374; 96375; C9113; J0330; J0690; J2250; J2405; J2543; J7060

== ENCOUNTER 2018-04-05 08:43 | Emergency (ER) | payer MEDICARE, OTHER ==
[~2018-04-05] VITALS: Ht 170.2 cm; Wt 64.4 kg
[~2018-04-05 08:43] MED LIST changes: +INSULIN PUMP SC; +PANT40T PO; +PROP60CA34 PO; -PROP60CA8 PO; -TIZA4TAB3 PO
[2018-04-05 09:24] LABS: Urine Bacteria FEW /hpf (None Seen); Urine Blood Negative /uL (Negative); Urine Mucus FEW (None Seen); Urine Specific Gravity 1.023 (1.001-1.035); Urine WBC 23 /hpf (0 - 5)
[2018-04-05 09:40] LABS: Hematocrit 41.5 % (36.0-46.0); Hemoglobin 13.7 g/dL (12.2-16.2); Mean Corpuscular Hemoglobin 31.6 pg (28.0-32.0); Mean Corpuscular Volume 95.8 fL (80.0-100.0); Platelet Count (auto) 283 10^3/uL (140-450); Red Blood Cells 4.34 10^6/uL (4.0-5.20); Red Cell Distribution Width 13.3 % (11.8-14.3)
[2018-04-05 09:42] LABS: Band Neutrophils % (manual) 0; Basophils % (manual) 0 (0.0-2.0); Blast Cells 0; Metamyelocytes % 0; Myelocytes % 0; Promyelocytes % 0; Reactive Lymphocytes 0
[2018-04-05 09:58] LABS: Albumin 3.7 g/dL (3.4-5.0); BUN/Creatinine Ratio 18.2; Bilirubin, Total 0.5 mg/dL (0.2-1.0); Calcium 9.2 mg/dL (8.5-10.1); Potassium 4.4 mmol/L (3.5-5.1); Total Protein 7.1 g/dL (6.4-8.2)
[2018-04-05 10:31] LABS: Eosinophils % (manual) 18 (0-7); Lymphocytes % (manual) 37 (10.0-50.0); Monocytes % (manual) 7 (0-12)
[2018-04-05] MEDS ORDERED: DOCUSATE SOD 100 MG CAP PO ONE (12:30)
[2018-04-05] MEDS ORDERED: ONDANSETRON ODT 4 MG TAB PO ONE (12:30)
[2018-04-05 12:57] VITALS: BP 181/89
== END 2018-04-05 12:30 | disposition home or self-care (01) ==
LOC: ER 08:43
DX: N39.0 Urinary tract infection, site not specified (principal); E11.9 Type 2 diabetes mellitus without complications; E78.5 Hyperlipidemia, unspecified; I10 Essential (primary) hypertension; Z90.49 Acquired absence of other specified parts of digestive tract; Z98.51 Tubal ligation status
CPT/HCPCS: 36415; 74176; 80053; 81001; 85007; 85027; 93005; 99285; Q0162

== ENCOUNTER → 2018-05-21 | Outpatient (CLI) | payer MEDICARE, BC ==
[~2018-05-21] MED LIST changes: +LOSA-46 PO; -LOSA50TA6 PO
== END | disposition home or self-care (01) ==
LOC: Rad HDHVI 15:01
PROVIDERS: ATTEND Internal Medicine Cardiovascular Disease
DX: I07.1 Rheumatic tricuspid insufficiency (principal); I10 Essential (primary) hypertension; E11.9 Type 2 diabetes mellitus without complications; J44.9 Chronic obstructive pulmonary disease, unspecified; Z88.6 Allergy status to analgesic agent
CPT/HCPCS: 93306

== ENCOUNTER → 2018-06-07 | Outpatient (CLI) | payer MEDICARE, BC ==
[~2018-06-07] VITALS: Ht 170.2 cm; Wt 62.1 kg
[~2018-06-07] MED LIST changes: +ADENOSINE 52 MG in GIVE UN-DILUTED 0 ML IV ONE; +ADENOSINE 90 MG/30 ML INJ IV ONE
== END | disposition home or self-care (01) ==
LOC: Rad HDHVI 13:53
PROVIDERS: ATTEND Internal Medicine Cardiovascular Disease
DX: E11.42 Type 2 diabetes mellitus with diabetic polyneuropathy (principal); R07.89 Other chest pain; I95.1 Orthostatic hypotension; E11.40 Type 2 diabetes mellitus with diabetic neuropathy, unspecified
CPT/HCPCS: 78452; 93005; 96374; 96375; A9500; J0153

== ENCOUNTER → 2019-02-02 | Outpatient (CLI) | payer MEDICARE, BC ==
[~2019-02-02] MED LIST changes: -ADENOSINE 52 MG in GIVE UN-DILUTED 0 ML IV ONE; -ADENOSINE 90 MG/30 ML INJ IV ONE
[2019-02-02 10:24] LABS: Urine Bacteria NONE SEEN /hpf (None Seen); Urine Blood Negative /uL (Negative); Urine Specific Gravity 1.015 (1.001-1.035); Urine WBC 5 /hpf (0 - 5)
[2019-02-02 10:35] LABS: Basophils # (auto) 0.1 uL; Basophils % (auto) 1.1 % (0.0-2.0); Eosinophils # (auto) 0.4 uL; Eosinophils % (auto) 5.2 % (0.0-7.0); Hematocrit 39.4 % (36.0-46.0); Hemoglobin 13.1 g/dL (12.2-16.2); Lymphocytes # (auto) 2.6 uL; Lymphocytes % (auto) 38.1 % (10.0-50.0); Mean Corpuscular Hemoglobin 31.6 pg (28.0-32.0); Mean Corpuscular Hgb Conc. 33.3 g/dL (32.0-36.0); Mean Corpuscular Volume 94.8 fL (80.0-100.0); Monocytes # (auto) 0.7 uL; Monocytes % (auto) 9.9 % (0.0-12.0); Neutrophils # (auto) 3.1 uL; Neutrophils % (auto) 45.7 % (37.0-80.0); Platelet Count (auto) 266 10^3/uL (140-450); Red Blood Cells 4.15 10^6/uL (4.0-5.20); Red Cell Distribution Width 13.1 % (11.8-14.3); White Blood Cell 6.7 10^3/uL (4.4-10.8)
[2019-02-02 11:12] LABS: Albumin 3.3 g/dL (3.4-5.0); BUN/Creatinine Ratio 31.7; Calcium 9.3 mg/dL (8.5-10.1); Potassium 4.7 mmol/L (3.5-5.1)
[2019-02-02 11:17] LABS: Bilirubin, Total 0.4 mg/dL (0.2-1.0)
== END | disposition home or self-care (01) ==
LOC: LAB 09:04
PROVIDERS: ATTEND Nurse Practitioner
DX: E78.5 Hyperlipidemia, unspecified (principal); E11.9 Type 2 diabetes mellitus without complications
CPT/HCPCS: 36415; 80053; 80061; 81001; 83036; 84443; 85025

== ENCOUNTER → 2019-06-14 | Outpatient (CLI) | payer MEDICARE, BC ==
[~2019-06-14] MED LIST changes: -LOSA-46 PO; +LOSA-69 PO
[2019-06-14 11:21] LABS: Urine Bacteria NONE SEEN /hpf (None Seen); Urine Blood TRACE /uL (Negative); Urine Specific Gravity 1.021 (1.001-1.035); Urine WBC 262 /hpf (0 - 5)
== END | disposition home or self-care (01) ==
LOC: LAB 11:02
PROVIDERS: ATTEND Nurse Practitioner
DX: N39.0 Urinary tract infection, site not specified (principal)
CPT/HCPCS: 81001; 87086

== ENCOUNTER → 2019-11-07 | Outpatient (CLI) | payer MEDICARE, BC ==
[2019-11-07 10:38] LABS: Basophils # (auto) 0.1 10 ^3/uL (0-0.2); Basophils % (auto) 1.1 % (0.0-2.0); Eosinophils # (auto) 0.4 10 ^3/uL (0-0.8); Eosinophils % (auto) 5.1 % (0.0-7.0); Hematocrit 41.9 % (36.0-46.0); Hemoglobin 13.9 g/dL (12.2-16.2); Lymphocytes # (auto) 2.1 10 ^3/uL (0.4-5.4); Lymphocytes % (auto) 27.4 % (10.0-50.0); Mean Corpuscular Hemoglobin 31.6 pg (28.0-32.0); Mean Corpuscular Hgb Conc. 33.3 g/dL (32.0-36.0); Mean Corpuscular Volume 95.1 fL (80.0-100.0); Monocytes # (auto) 0.7 10 ^3/uL (0-1.3); Monocytes % (auto) 9.3 % (0.0-12.0); Neutrophils # (auto) 4.3 10 ^3/uL (1.6-8.6); Neutrophils % (auto) 57.1 % (37.0-80.0); Platelet Count (auto) 328 10^3/uL (140-450); Red Blood Cells 4.41 10^6/uL (4.0-5.20); Red Cell Distribution Width 12.8 % (11.8-14.3); White Blood Cell 7.6 10^3/uL (4.4-10.8)
[2019-11-07 12:36] LABS: Potassium 4.3 mmol/L (3.5-5.1)
[2019-11-07 12:43] LABS: Albumin 3.8 g/dL (3.4-5.0); BUN/Creatinine Ratio 23.3; Bilirubin, Total 0.4 mg/dL (0.2-1.0); Calcium 9.5 mg/dL (8.5-10.1); Total Protein 8.2 g/dL (6.4-8.2)
[2019-11-07 12:51] LABS: Urine Bacteria FEW /hpf (None Seen); Urine Blood Negative /uL (Negative); Urine Specific Gravity 1.012 (1.001-1.035); Urine WBC 291 /hpf (0 - 5); Urine WBC Clumps PRESENT /hpf (None Seen)
== END | disposition home or self-care (01) ==
LOC: LAB 10:10
PROVIDERS: ATTEND Nurse Practitioner
DX: E78.5 Hyperlipidemia, unspecified (principal); E11.22 Type 2 diabetes mellitus with diabetic chronic kidney disease; I12.9 Hypertensive chronic kidney disease with stage 1 through stage 4 chronic kidney disease, or unspecified chronic kidney disease; N18.2 Chronic kidney disease, stage 2 (mild)
CPT/HCPCS: 36415; 80053; 80061; 81001; 82043; 83036; 84443; 85025

== ENCOUNTER 2022-01-26 19:27 | Emergency (ER) | payer MEDICARE, BC ==
[~2022-01-26] VITALS: Ht 165.1 cm; Wt 65.8 kg
[2022-01-27] MEDS ORDERED: CEPH500C PO (02:04)
[2022-01-27] MEDS ORDERED: ACET325T10 PO (02:04)
[2022-01-27 02:10] VITALS: BP 132/70
[2022-01-27] MEDS ORDERED: CEPHALEXIN 250 MG CAP PO ONE (02:15)
[2022-01-27] MEDS ORDERED: ACETAMINOPHEN 325 MG TAB PO ONE (02:15)
[2022-01-27] MEDS ORDERED: TETANUS-DIPTH-ACEL PERTUSSIS 0.5ML SYR Tdap IM ONE (02:15)
== END 2022-01-27 02:20 | disposition home or self-care (01) ==
LOC: ER 19:34
DX: L03.114 Cellulitis of left upper limb (principal); E11.9 Type 2 diabetes mellitus without complications; I10 Essential (primary) hypertension; E78.5 Hyperlipidemia, unspecified; Z90.49 Acquired absence of other specified parts of digestive tract; Z98.51 Tubal ligation status; Z88.6 Allergy status to analgesic agent; Z88.8 Allergy status to other drugs, medicaments and biological substances
CPT/HCPCS: 90471; 90715

== ENCOUNTER 2023-03-09 08:59 | Emergency (ER) | payer MEDICARE, BC ==
[~2023-03-09] VITALS: Ht 170.2 cm; Wt 62.9 kg
[~2023-03-09 08:59] MED LIST changes: +ACET-1882 PO; +CEPH500C PO; -CYAN500L3 PO; +CYAN500L4 PO; -LOSA-69 PO; +LOSA50TA46 PO
[2023-03-09 09:23] LABS: Basophils # (auto) 0.1 10 ^3/uL (0-0.2); Basophils % (auto) 0.9 % (0.0-2.0); Eosinophils # (auto) 0.4 10 ^3/uL (0-0.8); Hematocrit 41.8 % (36.0-46.0); Hemoglobin 13.5 g/dL (12.2-16.2); Lymphocytes # (auto) 1.8 10 ^3/uL (0.4-5.4); Mean Corpuscular Hemoglobin 30.5 pg (28.0-32.0); Mean Corpuscular Hgb Conc. 32.2 g/dL (32.0-36.0); Mean Corpuscular Volume 94.8 fL (80.0-100.0); Monocytes # (auto) 0.7 10 ^3/uL (0-1.3); Neutrophils # (auto) 4.9 10 ^3/uL (1.6-8.6); Neutrophils % (auto) 62.1 % (37.0-80.0); Red Blood Cells 4.41 10^6/uL (4.0-5.20); Red Cell Distribution Width 12.6 % (11.8-14.3); White Blood Cell 7.9 10^3/uL (4.4-10.8)
[2023-03-09] MEDS ORDERED: cefTRIAXone 1GM/50ML D5W 50 ML IV ONE (09:30)
[2023-03-09] MEDS ORDERED: metroNIDAZOLE 500MG/100ML 100 ML IV ONE (09:30)
[2023-03-09] MEDS ORDERED: SODIUM CHLORIDE 0.9% 1,000 ML IV ONE (09:30)
[2023-03-09 09:43] LABS: Albumin 3.4 g/dL (3.4-5.0); Calcium 9.4 mg/dL (8.5-10.1); Potassium 4.8 mmol/L (3.5-5.1)
[2023-03-09 09:48] LABS: BUN/Creatinine Ratio 22.4 (10.0-20.0); Bilirubin, Total 0.6 mg/dL (0.2-1.0); Total Protein 7.4 g/dL (6.4-8.2)
[2023-03-09 10:10] LABS: Urine Bacteria FEW /hpf (None Seen); Urine Blood Negative /uL (Negative); Urine Hyaline Cast FEW /lpf (0 - 2); Urine Mucus FEW (None Seen); Urine Specific Gravity 1.015 (1.001-1.035); Urine WBC 4 /hpf (0 - 5)
[2023-03-09 11:51] VITALS: BP 141/63
== END 2023-03-09 11:56 | disposition home or self-care (01) ==
LOC: ER 08:59
DX: M50.31 Other cervical disc degeneration, high cervical region (principal); E11.65 Type 2 diabetes mellitus with hyperglycemia; E78.5 Hyperlipidemia, unspecified; I10 Essential (primary) hypertension; Z90.49 Acquired absence of other specified parts of digestive tract; Z98.890 Other specified postprocedural states
CPT/HCPCS: 36415; 70450; 72125; 73200; 80053; 81001; 82962; 83605; 84484; 85025; 87040; 93005; 96365; 96367; 99285; J0696; J3490; J7030

== ENCOUNTER 2024-02-02 08:01 | Inpatient (IN) | payer MEDICARE, BC ==
[~2024-02-02] VITALS: Ht 165.1 cm; Wt 68.5 kg
[~2024-02-02 08:01] MED LIST changes: +LOSA-534 PO; -LOSA50TA46 PO
[2024-02-02] MEDS: cloNIDine HCL 0.1 MG TAB PO ONE (08:29)
[2024-02-02 09:03] LABS: Basophils # (auto) 0.1 10 ^3/uL (0-0.2); Basophils % (auto) 0.9 % (0.0-2.0); Eosinophils # (auto) 0.4 10 ^3/uL (0-0.8); Eosinophils % (auto) 5.7 % (0.0-7.0); Hematocrit 43.1 % (36.0-46.0); Mean Corpuscular Hemoglobin 31.2 pg (28.0-32.0); Mean Corpuscular Hgb Conc. 32.6 g/dL (32.0-36.0); Monocytes # (auto) 0.5 10 ^3/uL (0-1.3); Monocytes % (auto) 7.8 % (0.0-12.0); Neutrophils # (auto) 3.9 10 ^3/uL (1.6-8.6); Neutrophils % (auto) 56.6 % (37.0-80.0); Nucleated Red Blood Cells % 0.1 %; Red Blood Cells 4.49 10^6/uL (4.0-5.20); Red Cell Distribution Width 13.2 % (11.8-14.3); White Blood Cell 6.9 10^3/uL (4.4-10.8)
[2024-02-02 09:13] LABS: Alanine Aminotransferase 17 U/L (7-40); Albumin 4.4 g/dL (3.2-4.8); Alkaline Phosphatase 65 U/L (46-116); Anion Gap 6 (5-15); Aspartate Aminotransferase 23 U/L (13-40); BUN/Creatinine Ratio 24.3 (10.0-20.0); Blood Urea Nitrogen 17 mg/dL (9-23); Carbon Dioxide 28 mmol/L (20-30); Chloride 105 mmol/L (98-107); Glucose 83 mg/dL (74-106); Potassium 4.1 mmol/L (3.5-5.1); Sodium 139 mmol/L (136-145)
[2024-02-02 09:14] LABS: Bilirubin, Total 0.4 mg/dL (0.2-1.0); Total Protein 7.3 g/dL (5.7-8.2)
[2024-02-02 09:39] LABS: Urine Bacteria None Seen /hpf (None Seen)
[2024-02-02] MEDS: IOHEXOL 350 MG/ML 100ML IJ ONE (09:52)
[2024-02-02 10:25] LABS: Urine Blood Negative /uL (Negative); Urine Clarity Clear (Clear); Urine Hyaline Cast FEW /lpf (0 - 2); Urine Protein, UAD Negative (Negative); Urine Specific Gravity 1.009 (1.001-1.035); Urine Urobilinogen Normal (Negative); Urine WBC 1 /hpf (0 - 5); Urine pH 6.5 (5.0-9.0)
[2024-02-02 10:26] LABS: Urine Color Straw (Yellow)
[2024-02-02] MEDS: METOCLOPRAMIDE HCL 5MG/ml INJ 2ml VIAL IV ONE (10:32)
[2024-02-02] MEDS ORDERED: MORPHINE SULFATE INJ 2 MG/ml SYRG IV PRN (13:15)
[2024-02-02] MEDS ORDERED: HYDROcodone-ACET 5/325MG TAB PO PRN (13:15)
[2024-02-02] MEDS ORDERED: DEXTROSE (50%) 50ML SYRG IV PRN (13:15)
[2024-02-02] MEDS ORDERED: DOCUSATE SOD 100 MG CAP PO PRN (13:15)
[2024-02-02] MEDS ORDERED: ONDANSETRON HCL 4 MG/2 ML VIAL IV PRN (13:15)
[2024-02-02] MEDS ORDERED: NITROGLYCERIN 0.4 MG SL TAB SL PRN (13:15)
[2024-02-02] MEDS ORDERED: PROP1TAB51 PO (13:20)
[2024-02-02] MEDS ORDERED: LEVO137T3 PO (13:20)
[2024-02-02] MEDS: SODIUM CHLOR 0.9% PF (SALINE LOCK) 10ML VIAL/SYR IV SCH (14:00)
[2024-02-02] MEDS: LISINOPRIL 5 MG TAB PO SCH (14:41)
[2024-02-02] MEDS: ACCU-CHEK COMFORT CURVE STRIP VI SCH (20:12)
[2024-02-02] MEDS: InsuLIN REG 1unit/0.01ml Soln (100units/ml) SC SCH (20:13)
[2024-02-02 22:25] VITALS: BP 134/55; PULSE 63; RESP 16; TEMP 97.4; O2SAT 95
[2024-02-03] VITALS (9 sets, daily range): BP systolic 134–168; BP diastolic 50–69; PULSE 61–78; RESP 16–20; TEMP 97–98.1; O2SAT 95–100
[2024-02-03] MEDS: LEVOTHYROXINE SODIUM 25 MCG TAB PO SCH (06:19)
[2024-02-03] MEDS: LEVOTHYROXINE SODIUM 112 MCG TAB PO SCH (06:19)
[2024-02-03 07:45] LABS: Alanine Aminotransferase 11 U/L (7-40); Albumin 3.3 g/dL (3.2-4.8); Alkaline Phosphatase 54 U/L (46-116); Anion Gap 4 (5-15); Aspartate Aminotransferase 18 U/L (13-40); BUN/Creatinine Ratio 22.4 (10.0-20.0); Basophils # (auto) 0 10 ^3/uL (0-0.2); Basophils % (auto) 0.7 % (0.0-2.0); Bilirubin, Total 0.4 mg/dL (0.2-1.0); Blood Urea Nitrogen 15 mg/dL (9-23); Calcium 9.9 mg/dL (8.5-10.1); Carbon Dioxide 29 mmol/L (20-30); Chloride 106 mmol/L (98-107); Eosinophils # (auto) 0.4 10 ^3/uL (0-0.8); Eosinophils % (auto) 5.6 % (0.0-7.0); Glucose 96 mg/dL (74-106); Hematocrit 37.7 % (36.0-46.0); Hemoglobin 12.4 g/dL (12.2-16.2); Lymphocytes # (auto) 2.2 10 ^3/uL (0.4-5.4); Mean Corpuscular Hemoglobin 31.8 pg (28.0-32.0); Mean Corpuscular Hgb Conc. 33.1 g/dL (32.0-36.0); Mean Corpuscular Volume 96.1 fL (80.0-100.0); Monocytes # (auto) 0.8 10 ^3/uL (0-1.3); Monocytes % (auto) 10.6 % (0.0-12.0); Neutrophils # (auto) 3.8 10 ^3/uL (1.6-8.6); Neutrophils % (auto) 53.1 % (37.0-80.0); Potassium 4.6 mmol/L (3.5-5.1); Red Blood Cells 3.92 10^6/uL (4.0-5.20); Red Cell Distribution Width 13.1 % (11.8-14.3); Sodium 139 mmol/L (136-145); Total Protein 6.5 g/dL (5.7-8.2); White Blood Cell 7.3 10^3/uL (4.4-10.8)
[2024-02-03] MEDS: ACETAMINOPHEN 325 MG TAB PO PRN (09:02)
[2024-02-03] MEDS: PROPRANOLOL HCL 20 MG TAB PO SCH (09:03)
[2024-02-03] MEDS: CHOLECALCIFEROL (VITD3) 1,000UNIT=25mCg TAB PO SCH (10:36)
[2024-02-03] MEDS: hydrALAZINE HCL 20 MG/ML VL IV PRN (18:38)
[2024-02-03] MEDS: hydrALAZINE HCL 20 MG/ML VL IV ONE (23:23)
[2024-02-04 00:31] VITALS: BP 119/41; PULSE 78
[2024-02-04 05:00] VITALS: BP 128/57; PULSE 78; RESP 18; TEMP 97.6; O2SAT 96
[2024-02-04 08:00] VITALS: BP 121/58; PULSE 77; RESP 16; TEMP 97.4; O2SAT 96
[2024-02-04] MEDS ORDERED: AMLO1TAB22 PO (12:38)
[2024-02-04 13:00] VITALS: BP 162/71; PULSE 74; RESP 16; TEMP 97.7; O2SAT 95
[2024-02-04 13:16] VITALS: BP 162/71; PULSE 76; RESP 16; TEMP 97.7; O2SAT 95
== END 2024-02-04 15:00 | disposition home or self-care (01) | DRG 305 ==
LOC: ER 08:01 → EDBD 08:01 → WEST WING 13:20 → TELE 13:20 → TELE-WESTW 22:30 → WEST WING 02-03 14:08
PROVIDERS: ADMIT Internal Medicine; ATTEND Internal Medicine
DX: I16.1 Hypertensive emergency (principal); E03.9 Hypothyroidism, unspecified; E10.9 Type 1 diabetes mellitus without complications; R25.1 Tremor, unspecified; Z88.6 Allergy status to analgesic agent; Z90.49 Acquired absence of other specified parts of digestive tract; Z91.048 Other nonmedicinal substance allergy status
CPT/HCPCS: 36415; 70450; 70496; 71045; 80053; 81001; 83605; 83880; 84484; 85025; 85379; 87040; 93970; G0378

== ENCOUNTER → 2024-02-29 | Outpatient (CLI) | payer MEDICARE, BC ==
[~2024-02-29] MED LIST changes: -ACET-1882 PO; +AMLO1TAB22 PO; -CEPH500C PO; +LEVO137T3 PO; -LEVO150T10 PO; -LOSA-534 PO; -PANT40T PO; +PROP1TAB51 PO; -PROP60CA34 PO
== END | disposition home or self-care (01) ==
LOC: Rad HDHVI 14:41
PROVIDERS: ATTEND Internal Medicine Cardiovascular Disease
DX: I07.1 Rheumatic tricuspid insufficiency (principal); I10 Essential (primary) hypertension
CPT/HCPCS: 93306

== ENCOUNTER → 2024-03-14 | Outpatient (CLI) | payer MEDICARE, BC | END | disposition home or self-care (01) | LOC: Rad HDHVI 11:02 | PROVIDERS: ATTEND Internal Medicine Cardiovascular Disease | DX: I65.21 Occlusion and stenosis of right carotid artery (principal); I10 Essential (primary) hypertension | CPT/HCPCS: 93880 ==

== ENCOUNTER → 2024-04-20 | Outpatient (CLI) | payer MEDICARE, BC ==
[~2024-04-20] MED LIST changes: +CLOT1CRE56 TOP; +MAGN100T9 PO; +POM EACHEYE
[2024-04-20 11:00] VITALS: BP 123/60; PULSE 77; RESP 18; O2SAT 94
[2024-04-20 11:23] VITALS: BP 124/60; PULSE 73; RESP 18; O2SAT 94
== END | disposition home or self-care (01) ==
LOC: Rad HDHVI 10:54
PROVIDERS: ATTEND Internal Medicine Cardiovascular Disease
DX: Z01.818 Encounter for other preprocedural examination (principal); R06.02 Shortness of breath; I47.20 Ventricular tachycardia, unspecified
CPT/HCPCS: 71046; 93005; G0463

== ENCOUNTER 2024-04-28 17:08 | Emergency (ER) | payer MEDICARE ==
[~2024-04-28] VITALS: Ht 165.1 cm; Wt 60.0 kg
[~2024-04-28 17:08] MED LIST changes: -ACET-1304; -INSLISPI SC
[2024-04-28 18:59] LABS: Basophils # (auto) 0.1 10 ^3/uL (0-0.2); Basophils % (auto) 0.8 % (0.0-2.0); Eosinophils # (auto) 0.4 10 ^3/uL (0-0.8); Eosinophils % (auto) 5.4 % (0.0-7.0); Hematocrit 40.6 % (36.0-46.0); Hemoglobin 13.4 g/dL (12.2-16.2); Lymphocytes # (auto) 2.6 10 ^3/uL (0.4-5.4); Lymphocytes % (auto) 31.7 % (10.0-50.0); Mean Corpuscular Hemoglobin 32.1 pg (28.0-32.0); Mean Corpuscular Hgb Conc. 33.1 g/dL (32.0-36.0); Monocytes # (auto) 0.9 10 ^3/uL (0-1.3); Monocytes % (auto) 11.3 % (0.0-12.0); Neutrophils # (auto) 4.2 10 ^3/uL (1.6-8.6); Neutrophils % (auto) 50.8 % (37.0-80.0); Platelet Count (auto) 289 10^3/uL (140-450); Red Blood Cells 4.18 10^6/uL (4.0-5.20); Red Cell Distribution Width 13.1 % (11.8-14.3); White Blood Cell 8.2 10^3/uL (4.4-10.8)
[2024-04-28 19:19] LABS: INR 0.97 (0.9-1.15); Partial Thromboplastin Time 27.1 SEC (24.5-34.5); Prothrombin Time 10.3 sec (9.3-11.8)
[2024-04-28 19:42] LABS: Alanine Aminotransferase 14 U/L (7-40); Alkaline Phosphatase 74 U/L (46-116); Anion Gap 6 (5-15); Aspartate Aminotransferase 20 U/L (13-40); Bilirubin, Total 0.2 mg/dL (0.2-1.0); Blood Urea Nitrogen 23 mg/dL (9-23); Calcium 9.7 mg/dL (8.7-10.4); Carbon Dioxide 24 mmol/L (20-30); Chloride 106 mmol/L (98-107); Glucose 139 mg/dL (74-106); Potassium 4.5 mmol/L (3.5-5.1); Sodium 136 mmol/L (136-145); Total Protein 7.1 g/dL (5.7-8.2)
[2024-04-28 22:18] VITALS: BP 131/66; PULSE 79; RESP 19; TEMP 97.3; O2SAT 95
[2024-05-02] MEDS ORDERED: CLOP75TA28 PO (08:44)
== END 2024-04-28 22:15 | disposition home or self-care (01) ==
LOC: ER 17:08
DX: M79.604 Pain in right leg (principal); I10 Essential (primary) hypertension; I25.10 Atherosclerotic heart disease of native coronary artery without angina pectoris; E11.9 Type 2 diabetes mellitus without complications; E78.5 Hyperlipidemia, unspecified; Z98.61 Coronary angioplasty status; Z98.890 Other specified postprocedural states; Z88.8 Allergy status to other drugs, medicaments and biological substances; Z79.899 Other long term (current) drug therapy; Z91.09 Other allergy status, other than to drugs and biological substances
CPT/HCPCS: 36415; 80053; 85025; 85610; 85730; 93926; 93971

== ENCOUNTER → 2024-04-29 | Outpatient (CLI) | payer MEDICARE, BC ==
[~2024-04-29] MED LIST changes: +CLOP75TA28 PO
[2024-04-29 09:53] VITALS: BP 155/63; PULSE 66; RESP 18; O2SAT 97
[2024-04-29] MEDS: ENOXAPARIN SOD 30 MG/0.3 ML SYRINGE ONE (10:00)
[2024-04-29] MEDS: MULTIPLE VIT 10 ML IV ONE (10:00)
[2024-04-29] MEDS: amLODIPine BESYLATE 5 MG TAB ONE (10:11)
[2024-04-29] MEDS: SILDENAFIL CITRATE 20 MG TAB PO ONE ×2 (10:30→13:40)
[2024-04-29] MEDS: MVI in SODIUM CHLORIDE 0.9% 500 ML IVB ONE (10:53)
[2024-04-29] MEDS: ENOXAPARIN SOD 30 MG/0.3 ML SYRINGE IV ONE (12:41)
[2024-04-29 13:44] VITALS: BP 119/47; PULSE 81; RESP 18; O2SAT 97
== END | disposition home or self-care (01) ==
LOC: CHF HDHVI 09:52
PROVIDERS: ATTEND Internal Medicine Cardiovascular Disease
DX: E86.0 Dehydration (principal); I10 Essential (primary) hypertension; E11.9 Type 2 diabetes mellitus without complications; J44.9 Chronic obstructive pulmonary disease, unspecified; Z79.899 Other long term (current) drug therapy; Z98.51 Tubal ligation status; Z79.01 Long term (current) use of anticoagulants; Z88.6 Allergy status to analgesic agent; Z88.5 Allergy status to narcotic agent
CPT/HCPCS: 93005; 96365; 96366; 96375; G0463; J1650; J7040; 96360; 96361; 99152

== ENCOUNTER 2024-05-03 11:20 | Day surgery (SDC) | payer MEDICARE, BC ==
[2024-05-03] VITALS (9 sets, daily range): BP systolic 108–151; BP diastolic 55–71; PULSE 64–74; RESP 12–16; TEMP 97.6; O2SAT 96–99
[2024-05-03] MEDS ORDERED: IODIXANOL 320MG/ML 100ML BTL IV ONE (11:21)
[2024-05-03] MEDS ORDERED: HEPARIN IN NS 1000Units/500mL 1,500 ML ONE (13:19)
[2024-05-03] MEDS ORDERED: fentaNYL CITRATE 100 MCG/2 ML VL ONE (13:30)
[2024-05-03] MEDS ORDERED: ANGIOMAX 250 MG VIAL IV ONE (13:30)
[2024-05-03] MEDS ORDERED: MIDAZOLAM HCL 2MG/2ML 2ml VIAL (1mg/ml) ONE (13:30)
[2024-05-03] MEDS ORDERED: SODIUM CHL 0.9% 50 ML ONE (13:31)
[2024-05-03] MEDS ORDERED: LIDOCAINE 2%HCL (LOCAL ANESTH.) INJ 20ML MDV ONE (13:31)
== END 2024-05-03 16:48 | disposition home or self-care (01) ==
LOC: CATH 11:20
PROVIDERS: ATTEND Internal Medicine Cardiovascular Disease
DX: I74.3 Embolism and thrombosis of arteries of the lower extremities (principal); I70.291 Other atherosclerosis of native arteries of extremities, right leg; I77.1 Stricture of artery; I10 Essential (primary) hypertension; J44.9 Chronic obstructive pulmonary disease, unspecified; Z79.4 Long term (current) use of insulin; Z79.890 Hormone replacement therapy; Z79.899 Other long term (current) drug therapy; Z88.5 Allergy status to narcotic agent; Z88.6 Allergy status to analgesic agent; Z88.8 Allergy status to other drugs, medicaments and biological substances; Z79.01 Long term (current) use of anticoagulants; Z98.51 Tubal ligation status; Z82.49 Family history of ischemic heart disease and other diseases of the circulatory system
CPT/HCPCS: 37186; 75716; C1725; C1760; C1769; C1887; C1894; C2623; C9764; J0583; J1644; J2250; J3010; J7030; Q9967; 75710; 99152

== ENCOUNTER → 2024-06-02 | Outpatient (CLI) | payer MEDICARE, BC | END | disposition home or self-care (01) | LOC: Rad HDHVI 13:36 | PROVIDERS: ATTEND Internal Medicine Cardiovascular Disease | DX: R06.02 Shortness of breath (principal) | CPT/HCPCS: 93306 ==

== ENCOUNTER → 2024-06-08 | Outpatient (CLI) | payer MEDICARE, BC | END | disposition home or self-care (01) | LOC: Rad HDHVI 11:01 | PROVIDERS: ATTEND Internal Medicine Cardiovascular Disease | DX: I73.9 Peripheral vascular disease, unspecified (principal) | CPT/HCPCS: 93925 ==

== ENCOUNTER → 2024-07-15 | Outpatient (CLI) | payer MEDICARE, BC ==
--- NOTE | 2024-07-15 12:26 | DVH ---
CLINICAL INFORMATION: 84 years old, Female; PAIN. TECHNIQUE: Axial CT images of the lumbar spine were obtained without IV contrast. Coronal and sagitt al reformatted images were obtained, reviewed, and stored. One or more of the following dose reducti on techniques were used: Automated exposure control. Adjustment of mA and/or kV according to patient size. CTDIvol = 15.35 mGy DLP = 351.56 mGy-cm COMPARISON: No prior imaging of the lumbar spine was available for comparison at the time of dictatio n. FINDINGS: Vertebral body alignment is within normal limits. Vertebral body heights are maintained. Posterior el ements are intact. No acute fracture. Paraspinal soft tissues are unremarkable. Lumbar disc levels: L1-L2: Mild disc space narrowing. No significant disc bulge or spinal canal stenosis. No significant neural foraminal stenosis. L2-L3: Diffuse disc bulge mildly indenting the ventral aspect of the thecal sac and partially effacin g the lateral recesses, right greater than left. There is a mild degree of spinal canal stenosis. Fac et hypertrophy with mild moderate right neural foraminal stenosis. L3-L4: [id number] disc space narrowing. Diffuse disc bulge mildly indenting the ventral aspect of the thecal sac, without significant spinal canal stenosis. Facet hypertrophy with mild bilateral neural foraminal stenoses. L4-L5: Moderate to severe disc space narrowing. Posterior disc osteophyte complex causing moderate s abisai canal stenosis and partial effacement of the lateral recesses. Facet hypertrophy and dorsal sp urring contributes to moderate bilateral neural foraminal stenoses. L5-S1: Moderate disc space narrowing. Mild disc bulge mildly indenting the ventral aspect of the thec al sac. No significant spinal canal stenosis. There appears to be a right foraminal disc protrusion p artially effacing the right lateral recess, possibly abutting the traversing right S1 nerve root with in the lateral recess. Facet hypertrophy with moderate left neural foraminal stenosis. IMPRESSION: 1. No evidence of acute fracture or spondylolisthesis. 2. Degenerative disc disease and facet disease in the lumbar spine with associated spinal canal, suba rticular, and neural foraminal stenoses as detailed above.
== END | disposition home or self-care (01) ==
LOC: Rad HDHVI 10:22
PROVIDERS: ATTEND Internal Medicine Cardiovascular Disease
DX: M48.07 Spinal stenosis, lumbosacral region (principal); M51.379 Other intervertebral disc degeneration, lumbosacral region without mention of lumbar back pain or lower extremity pain; M47.817 Spondylosis without myelopathy or radiculopathy, lumbosacral region; M54.50 Low back pain, unspecified
CPT/HCPCS: 72131

== ENCOUNTER → 2024-11-09 | Outpatient (CLI) | payer MEDICARE, BC ==
--- NOTE | 2024-11-11 14:51 | DVH ---
Carotid Duplex Date: 11/09/2024 03:35 PM Clinical History: I50.33 Comparison: None Technique: Duplex Doppler evaluation of the extracranial carotid and vertebral arteries including color Doppler and spectral/pulsed waveform analysis was performed. Findings: Velocities and ratios within normal limits. IMPRESSION: No hemodynamically significant stenosis noted in the right carotid system. No hemodynamically significant stenosis noted in the left carotid system. Reference: Radiology 2003; 229:[id number]
== END | disposition home or self-care (01) ==
LOC: Rad HDHVI 14:51
PROVIDERS: ATTEND Internal Medicine Cardiovascular Disease
DX: I50.33 Acute on chronic diastolic (congestive) heart failure (principal)
CPT/HCPCS: 93880

== ENCOUNTER 2025-08-27 19:01 | Inpatient (IN) | payer MEDICARE, BC ==
[~2025-08-27] VITALS: Ht 165.1 cm; Wt 67.0 kg
--- NOTE | 2025-08-27 19:19 | ECG ---
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
--- NOTE | 2025-08-27 19:47 | ED.PDOC ---
HPI Comments 85 y/o F, with PMHx of DM, CAD, UTI's, HTN, HLD, and DM presents to the ED for CC of high blood pressure. EMS reports, patient is coming from home where she c/o high blood pressure reading with associated intermittent chest pain onset today (08/27/25). Per EMS, patient further c/o of UTI symptoms including increased frequency with left sided pelvic pressure. Patient denies nausea, vomiting, or headache. Chief Complaint: High Blood Pressure Time Seen by MD: 19:00 Primary Care Provider: GENIK Reviewed Notes: Nurses Notes, Medications, Allergies Allergies: Coded Allergies: Aspirin (Verified Allergy, Unknown, 04/20/24) Caffeine (Verified Allergy, Unknown, 04/20/24) Ibuprofen (Verified Allergy, Unknown, 04/20/24) Morphine (Verified Allergy, Unknown, 04/20/24) Phenacetin (Verified Allergy, Unknown, 04/20/24) Uncoded Allergies: ADHESICVE TAPE (Allergy, Unknown, 01/31/18) Home Meds Reported Medications Clopidogrel Bisulfate (Plavix) 75 Mg Tab, 1 TAB PO DAILY for cardiac stent, #90 TAB 1 Refill 05/02/24 Magnesium Bisglycinate (Mag Glycinate) 100 Mg Tab, 500 MG PO DAILY for SUPPLEMENT, TAB 04/20/24 Patients Own Medication (PATIENTS OWN MEDICATION) ., EACHEYE for DIABETIC RETINOPATHY PTS OWN MED-OBTAIN FROM PT AND SEND TO RX DRUG: FREQ: RX# EXP: DATE DISP: TECH: RPH: 04/20/24 Clotrimazole (Lotrimin) 1 Applic Ap, 1 APPLIC TOP DAILY for FEET FUNGUS, APPLIC 04/20/24 Amlodipine Besylate (Amlodipine Besylate) 5 Mg Tab, 5 MG PO BID for HTN, MG 04/20/24 Levothyroxine Sodium (Levothyroxine Sodium) 137 Mcg Tab, 1 TAB PO EVERY OTHER DAY 02/02/24 Propranolol HCl (Propranolol Hydrochloride) 10 Mg Tab, 1 TAB PO DAILY 02/02/24 [Insulin Pump] No Conflict Check, 0.6 SC CONTINUOUS 01/31/18 Cholecalciferol (VITAMIN D3) 2,000 Unit Tab, 5000 UNIT OR EVERY OTHER DAY, TAB 06/24/17 Cyanocobalamin (Vitamin B 12) 500 Mcg [place], 5000 MCG PO THIERNO CARY LOZ 06/24/17 Information Source: Patient Mode of Arrival: EMS Severity: Moderate Timing: Days Duration: Since onset Prehospital treatment: None Location: Substernal Radiation: No Radiation Onset: At Rest Cardiac Risk Factors: Hyperlipidemia, HTN, Diabetes PE Risk Factors: None History of: None Modifying Factors: Nothing Associated Signs and Symptoms: None Past Medical History PAST MEDICAL HISTORY: CAD, DM, High Lipids, HTN, Thyroid, UTI'S Surgical History: Cholecystectomy, PTCA, Tubal Ligation INSURANCE RATER History: No Pertinent INSURANCE RATER History Family History Family History: Family hx of heart solitario Social History Smoker: Non-Smoker Alcohol: Denies ETOH Use Drugs: Denies Drug Use Lives In: Home Constitutional: denies: chills, diaphoresis, fatigue, fever, malaise, sweats, weakness, others EENTM: denies: blurred vision, double vision, ear bleeding, ear discharge, ear drainage, ear pain, ear ringing, eye pain, eye redness, hearing loss, mouth pain, mouth swelling, nasal discharge, nose bleeding, nose congestion, nose pain, photophobia, tearing, throat pain, throat swelling, voice changes, others Respiratory: denies: cough, hemoptysis, orthopnea, SOB at rest, shortness of breath, SOB with excertion, stridor, wheezing, others Cardiovascular: reports: chest pain; denies: dizzy spells, diaphoresis, Dyspnea on exertion, edema, irregular heart beat, left arm pain, lightheadedness, palpitations, PND, syncope, others Gastrointestinal: denies: abdomen distended, abdominal pain, blood streaked bowels, constipated, diarrhea, dysphagia, difficulty swallowing, hematemesis, melena, nausea, poor appetite, poor fluid intake, rectal bleeding, rectal pain, vomiting, others Genitourinary: denies: abnormal vagina bleeding, burning, dyspareunia, dysuria, flank pain, frequency, hematuria, incontinence, pain, , vagina di scharge, urgency, others Neurological: denies: dizziness, fainting, headache, left sided numbness, left sided weakness, numbness, paresthesia, pre-existing deficit, right sided numbness, right sided weakness, seizure, speech problems, tingling, tremors, weakness, others Musculoskeletal: denies: back pain, gout, joint pain, joint swelling, muscle pain, muscle stiffness, neck pain, others Integumetry: denies: bruises, change in color, change in hair/nails, dryness, laceration, lesions, lumps, rash, wounds, others Allergic/Immunocompromised: denies: Difficulty Healing, Frequent Infections, Hives, Itching, others Hematologic/Lymphatic: denies: anemia, blood clots, easy bleeding, easy bruising, swollen glands, others Endocrine: denies: excessive hunger, excessive sweating, excessive thirst, excessive urination, flushing, intolerance to cold, intolerance to heat, unexplained weight gain, unexplained weight loss, others Psychiatric: denies: anxiety, bipolar disorder, depression, hopeless, panic disorder, schizophrenia, sleepless, suicidal, others All Other Systems: Reviewed and Negative Physical Exam General Appearance: No Apparent Distress, Normal HEENT: Normal ENT Inspection, Pharynx Normal Neck: Full Range of Motion, Non-Tender, Normal, Normal Inspection Respiratory: Chest Non-Tender, Lungs Clear, No Accessory Muscle Use, No Respiratory Distress, Normal Breath Sounds Cardiovascular: No Edema, No Murmur, No Gallop, Normal Peripheral Pulses, Regular Rate/Rhythm Breast Exam: Deferred Gastrointestinal: No Organomegaly, Non Tender, No Pulsatile Mass, Normal Bowel Sounds, Soft Genitalia: Deferred Pelvic: Deferred Rectal: Deferred Extremities: No calf tenderness, Normal capillary refill, Normal inspection, Normal range of motion, Non-tender, No pedal edema Musculoskeletal : Apperance: Normal Neurologic: Alert, cotton puller II-XII nml as Tested, No Motor Deficits, Normal Affect, Normal Mood, No Sensory Deficits Cerebellar Function: Normal Reflexes: Normal Skin: Dry, Normal Color, Warm Lymphatic: No Adenopathy Was a procedure done? Was a procedure done?: No CP Differential Dx Differential Diagnosis: HTN Essential, HTN Accelerated X-Ray, Labs, Meds, VS Vital Signs Date Time Temp Pulse Resp B/P (MAP) Pulse Ox O2 Delivery O2 Flow Rate FiO2 08/27/25 21:28 Room Air 0 08/27/25 21:28 97.1 74 17 137/77 (97) 96 97.1 08/27/25 21:17 137/77 08/27/25 19:20 98.0 73 16 216/87 98 98.0 08/27/25 19:11 70 Time of 1ST Reevaluation: 19:30 Reevaluation 1ST: Unchanged Patient Education/Counseling: Diagnosis, Treatment Family Education/Counseling: No Family Present SEPSIS Sepsis Screen Date sepsis recognized/suspect: Aug 27, 2025 Time Sepsis recognized/suspect: 1919 Recent Procedure: No On Antibiotic Therapy: No Respiratory Rate >20: No Heart Rate >90: No Temp<36 C (96.8 F) or >38.3 C: No SBP <90 or MAP <65 mmHG: No New Acute Mental Status Change: No Is the patient on CPAP, BIPAP,: No Physician Orders Complete Blood Count (08/27/25 23:21) Basic Metabolic Panel (08/27/25 23:21) Troponin-I Hs (08/27/25 23:21) Chest Xray 1 View (08/27/25 23:21) Continuous Ekg Monitoring 08,12,16,20,00,04 (08/27/25 23:21) Electrocardigram (08/27/25 23:21) Troponin-I Hs (08/28/25 00:21) Troponin-I Hs (08/28/25 02:21) Electrocardigram (08/28/25 00:21) Electrocardigram (08/28/25 02:21) Vital Signs Date Time Temp Pulse Resp B/P (MAP) Pulse Ox O2 Delivery O2 Flow Rate FiO2 08/27/25 21:28 Room Air 0 08/27/25 21:28 97.1 74 17 137/77 (97) 96 97.1 08/27/25 21:17 137/77 08/27/25 19:20 98.0 73 16 216/87 98 98.0 08/27/25 19:11 70 Critical Care Note Critical Care Time?: No Stability Stability form required: No Heart Score Heart Score: Heart Score Response (Comments) Value History N/A 0 EKG N/A 0 Age N/A 0 Risk Factors N/A 0 Troponin N/A 0 Total 0 I personally scribed for JOLIE BORGES MD ([email or web address]) on 08/27/25 at 19:47. Electronically submitted by Stephie Hutchinson ([email or web address]). I personally scribed for JOLIE BORGES MD ([email or web address]) on 08/27/25 at 23:25. Electronically submitted by Falguni Villasenor ([email or web address]). JOLIE BORGES MD Aug 27, 2025 19:47
[2025-08-28 07:27] VITALS: PULSE 80; RESP 14; O2SAT 95
[2025-08-28 08:32] VITALS: PULSE 76; RESP 15; O2SAT 96
[2025-08-28 09:12] LABS: Chloride 104 mmol/L (98-107); Potassium 4.1 mmol/L (3.5-5.1); Sodium 140 mmol/L (136-145)
[2025-08-28 09:13] LABS: Anion Gap 9 (5-15); Carbon Dioxide 27 mmol/L (20-31); Hematocrit 41.5 % (36.0-46.0); Hemoglobin 13.4 g/dL (12.2-16.2); Mean Corpuscular Hemoglobin 30.6 pg (28.0-32.0); Mean Corpuscular Volume 94.6 fL (80.0-100.0); Nucleated Red Blood Cells % 0.0 %
[2025-08-28 09:14] LABS: Calcium 9.6 mg/dL (8.7-10.4)
[2025-08-28 09:19] LABS: BUN/Creatinine Ratio 16.7 (10.0-20.0); Blood Urea Nitrogen 11 mg/dL (9-23)
[2025-08-28 09:21] LABS: Glucose 121 mg/dL (74-106)
[2025-08-28] MEDS ORDERED: HYDROcodone-ACET 5/325MG TAB PO PRN (11:15)
[2025-08-28] MEDS ORDERED: ACETAMINOPHEN 325 MG TAB PO PRN (11:15)
[2025-08-28] MEDS ORDERED: DEXTROSE (50%) 50ML SYRG IV PRN (11:15)
[2025-08-28] MEDS ORDERED: ONDANSETRON HCL 4 MG/2 ML VIAL IV PRN (11:15)
[2025-08-28] MEDS ORDERED: NITROGLYCERIN 0.4 MG SL TAB SL PRN (11:15)
[2025-08-28] MEDS ORDERED: DOCUSATE SOD 100 MG CAP PO PRN (11:15)
[2025-08-28] MEDS ORDERED: SODI10PA PO (11:28)
[2025-08-28] MEDS ORDERED: CELE1CAP29 PO (11:28)
[2025-08-28] MEDS ORDERED: ESOM40CA83 PO (11:28)
[2025-08-28] MEDS ORDERED: VERI2.5T PO (11:28)
--- NOTE | 2025-08-28 11:30 | DVHHP2 ---
History of Present Illness Reason for Visit: Elevated blood pressure History of Present Illness Balbina Buchanan is an 85-year-old female with past medical history of diabetes, hyperlipidemia, coronary artery disease, hypothyroidism, essential tremors, and hyperkalemia, who came to the hospital for elevated blood pressure. Patient states she does not have a history of hypertension. She take propanolol for tremors. She follows with Dr. Dyson, he placed a cardiac stent almost 1 year ago. She states that she was not feeling well, and could hear her heart beat. She was taking her blood pressure at home and her diastolic was consistently over 100 with the highest reading at 125. Cardiovascular: CAD, hyperipidemia, Other (PTCA with 1 stent placed 2023) Endocrine: Diabetes, Hypothyroidism Past Surgical History: Cholecystectomy, Other (left foot, PTCA in 2023), Tubal Ligation Smoke: No ALCOHOL: none Drugs: None Lives: Alone Domestic Violence: Neg Review of Systems Constitutional: Yes: Malaise; No: Fever, Chills, Sweats, Weakness, Other Eyes: No: Pain, Vision change, Conjunctivae inflammation, Eyelid inflammation, Other, Redness ENT: No: Ear pain, Ear discharge, Nose pain, Nose discharge, Nose congestion, Mouth pain, Mouth swelling, Throat pain, Throat swelling, Other Respiratory: No: Cough, Dry, Shortness of breath, SOB with excertion, Wheezing, Hemoptysis, Pleuritic Pain, Sputum, Wheezing, Other Cardiovascular: No: Chest Pain, Palpitations, Orthopnea, Paroxysmal Noc. Dyspnea, Edema, Lt Headedness, Other Gastrointestinal: No: Nausea, Vomiting, Abdominal Pain, Diarrhea, Constipation, Melena, Hematochezia, Other Genitourinary: No Dysuria, No Frequency, No Incontinence, No Hematuria, No Retention, No Other Musculoskeletal: No: other, neck pain, shoulder pain, arm pain, back pain, hand pain, leg pain, foot pain Skin: No: Rash, Lesions, Jaundice, Bruising, Other Neurological: No: Weakness, Numbness, Incoordination, Change in speech, Confusion, Seizures, Other Allergies: Coded Allergies: Aspirin (Verified Allergy, Unknown, 04/20/24) Caffeine (Verified Allergy, Unknown, 04/20/24) Ibuprofen (Verified Allergy, Unknown, 04/20/24) Phenacetin (Verified Allergy, Unknown, 04/20/24) Acetaminophen (Unverified Adverse Reaction, Unknown, 08/28/25) PT STATES SHE IS ON AN INSULIN PUMP AND WAS TOLD SHE CANNOT TAKE TYLENOL THEREFORE WANTS IT LISTED AN ALLERGY IN HER CHART Uncoded Allergies: ADHESICVE TAPE (Allergy, Unknown, 01/31/18) Medications Current Medications Medications Dose Ordered Sig/Melania Route Start Time Stop Time Status Last Admin Dose Admin Sodium Chloride 10 ml Q8HR IV 08/28/25 14:00 UNV Acetaminophen/ Hydrocodone Bitart 1 tab Q4HP PRN PO 08/28/25 11:15 UNV Ondansetron HCl 4 mg Q4HP PRN IV 08/28/25 11:15 UNV Docusate Sodium 100 mg BIDPRN PRN PO 08/28/25 11:15 UNV Acetaminophen 650 mg Q6HP PRN PO 08/28/25 11:15 UNV Nitroglycerin 0.4 mg Q5MINP PRN SL 08/28/25 11:15 UNV Exam Vital Signs Vital Signs Date Time Temp Pulse Resp B/P (MAP) Pulse Ox O2 Delivery O2 Flow Rate FiO2 08/28/25 11:11 157/47 08/28/25 10:28 86 26 96 08/28/25 08:32 Room Air* 0 21 08/28/25 08:31 97.5 97.5 Labs/Xrays Labs Test 08/28/25 10:29 08/28/25 08:58 Range/Units White Blood Count 7.7 4.4-10.8 10^3/uL Red Blood Count 4.39 4.0-5.20 10^6/uL Hemoglobin 13.4 12.2-16.2 g/dL Hematocrit 41.5 36.0-46.0 % Mean Corpuscular Volume 94.6 80.0-100.0 fL Mean Corpuscular Hemoglobin 30.6 28.0-32.0 pg Mean Corpuscular Hemoglobin Concent 32.3 32.0-36.0 g/dL Red Cell Distribution Width 13.0 11.8-14.3 % Platelet Count 272 140-450 10^3/uL Mean Platelet Volume 7.6 6.9-10.8 fL Neutrophils (%) (Auto) 66.4 37.0-80.0 % Lymphocytes (%) (Auto) 20.0 10.0-50.0 % Monocytes (%) (Auto) 9.4 0.0-12.0 % Eosinophils (%) (Auto) 3.5 0.0-7.0 % Basophils (%) (Auto) 0.7 0.0-2.0 % Neutrophils # (Auto) 5.1 1.6-8.6 10 ^3/uL Lymphocytes # (Auto) 1.5 0.4-5.4 10 ^3/uL Monocytes # (Auto) 0.7 0-1.3 10 ^3/uL Eosinophils # (Auto) 0.3 0-0.8 10 ^3/uL Basophils # (Auto) 0.1 0-0.2 10 ^3/uL Nucleated Red Blood Cells 0.0 % Sodium Level 140 136-145 mmol/L Potassium Level 4.1 3.5-5.1 mmol/L Chloride Level 104 98-107 mmol/L Carbon Dioxide Level 27 20-31 mmol/L Anion Gap 9 5-15 Blood Urea Nitrogen 11 9-23 mg/dL Creatinine 0.66 0.550-1.02 mg/dL Glomerular Filtration Rate Calc 85 >90 mL/min BUN/Creatinine Ratio 16.7 10.0-20.0 Serum Glucose 121 H 74-106 mg/dL Calcium Level 9.6 8.7-10.4 mg/dL CHEST RADIOGRAPH FINDINGS: Lines and Tubes: None Lungs: Mildly prominent bibasilar interstitial markings. May represent atelectasis. Pleura: No effusion. No pneumothorax. Cardiomediastinal contours: Unremarkable Bones: No acute osseous abnormality. IMPRESSION: 1. Possible bibasilar areas of atelectasis or scarring recommend comparison with the prior studies. SEPSIS Sepsis Screen Date sepsis recognized/suspect: Aug 28, 2025 Time Sepsis recognized/suspect: 0833 Recent Procedure: No On Antibiotic Therapy: No Respiratory Rate >20: No Heart Rate >90: No Temp<36 C (96.8 F) or >38.3 C: No SBP <90 or MAP <65 mmHG: No New Acute Mental Status Change: No Is the patient on CPAP, BIPAP,: No Physician Orders Troponin-I Hs (08/28/25 09:36) Troponin-I Hs (08/28/25 11:36) *Consult Dr. Kiel Coyne (08/28/25 11:08) Admit (08/28/25 11:09) Code Status (08/28/25 11:09) Sodium Chloride Lock (Saline Lock Ns) (08/28/25 14:00) Hydrocodone-Acet 5/325mg Tab ([place] 32 (08/28/25 11:15) Ondansetron Hcl (Zofran) (08/28/25 11:15) Docusate Sodium Capsule (Colace Capsule) (08/28/25 11:15) Complete Blood Count (08/29/25 04:00) Comprehensive Metabolic Panel (08/29/25 04:00) Cardiac Diet-2gna,Lofat,Lochol (08/28/25 Lunch) Echo 2d Mode Cardiac Dop (08/28/25 11:09) Condition: Serious (08/28/25 11:09) Acetaminophen Tablet (Tylenol Tablet) (08/28/25 11:15) Nitroglycerin Sublingual (Ntrostat Subli (08/28/25 11:15) Morphine Sulfate Injection (08/28/25 11:15) Stat Ekg For Chest Pain (08/28/25 11:09) Notify Of Changes From Base (08/28/25 11:09) Slasher Machine Operator For 24 Hours (08/28/25 11:09) Emergency Dysrhythmia Protocol (08/28/25 11:09) Rhythm Strips Once Every Shift (08/28/25 11:09) Oxygen By Nasal Cannula (08/28/25 11:09) Vital Signs Date Time Temp Pulse Resp B/P (MAP) Pulse Ox O2 Delivery O2 Flow Rate FiO2 08/28/25 11:11 157/47 08/28/25 10:28 86 26 169/63 (98) 96 08/28/25 08:32 76 15 96 Room Air* 0 21 08/28/25 08:31 97.5 76 15 164/73 (103) 96 97.5 08/28/25 07:27 80 14 95 Room Air* 0 21 08/28/25 07:26 97.4 80 14 155/53 (87) 95 97.4 08/28/25 03:49 98.2 78 16 180/64 (102) 94 98.2 Laboratory Tests Test 08/28/25 08:58 White Blood Count 7.7 10^3/uL (4.4-10.8) Medications Medications Dose Ordered Sig/Melania Route Start Time Stop Time Status Last Admin Dose Admin Clonidine HCl 0.1 mg ONCE ONCE PO 08/28/25 11:00 08/28/25 11:08 DC 08/28/25 11:11 0.1 MG Assessment/Plan Assessment/Plan Assessment: Hypertensive urgency, Coronary artery disease, Hypothyroidism, Hyperlipidemia, Diabetes, Plan: Admit to Tele, Cardiology consult, ECHO, Antihypertensives, Accu checks with sliding scale, Home medications reconciled, Plan discussed with: Patient My Orders Orders - LUCAS CARLSON Procedure Category Date Status Time *Consult Dr. Dyson CONS 08/28/25 Transmitted [place] 11:08 Admit ADMIT 08/28/25 Transmitted 11:09 Code Status CODE 08/28/25 Transmitted 11:09 Sodium Chloride Lock PHA 08/28/25 Logged (Saline Lock Ns) 14:00 Hydrocodone-Acet PHA 08/28/25 Logged 5/325mg Tab ([place] 11:15 Ondansetron Hcl PHA 08/28/25 Logged (Zofran) 11:15 Docusate Sodium PHA 08/28/25 Logged Capsule (Colace 11:15 Complete Blood Count LAB 08/29/25 Verified 04:00 Comprehensive LAB 08/29/25 Verified Metabolic Panel 04:00 Cardiac DIET 08/28/25 Transmitted Diet-2gna,Lofat,Lochol Lunch Echo 2d Mode Cardiac US 08/28/25 Logged DOP 11:09 Condition: Serious [facility] 08/28/25 In Process 11:09 Acetaminophen Tablet PHA 08/28/25 Logged (Tylenol Tablet) 11:15 Nitroglycerin PHA 08/28/25 Logged Sublingual (Ntrostat 11:15 Morphine Sulfate PHA 08/28/25 Logged Injection 11:15 Stat Ekg For Chest [facility] 08/28/25 In Process Pain 11:09 Notify Md Of Changes [facility] 08/28/25 In Process From Base 11:09 Slasher Machine Operator For [facility] 08/28/25 In Process 24 Hours 11:09 Emergency Dysrhythmia [facility] 08/28/25 In Process Protocol 11:09 Rhythm Strips Once [facility] 08/28/25 In Process Every Shift 11:09 Oxygen By Nasal RT 08/28/25 Transmitted Cannula 11:09 Date of Service: Aug 28, 2025 Billing Provider: LUCAS CARLSON Common Visit Codes: [id number] INP/OBS CARE (MOD) LUCAS CARLSON Aug 28, 2025 11:30
[2025-08-28] MEDS ORDERED: MORPHINE SULFATE 4 MG/ML SYR/VIAL IV PRN (11:45)
[2025-08-28] MEDS ORDERED: SODIUM ZIRCONIUM CYCL 10 GM PAK PO SCH (12:00)
[2025-08-28] MEDS ORDERED: CELECOXIB 100 MG CAP PO PRN (12:15)
[2025-08-28] MEDS: ACCU-CHEK COMFORT CURVE STRIP VI SCH (12:56)
[2025-08-28] MEDS: InsuLIN REG 1unit/0.01ml Soln (100units/ml) SC SCH (12:56)
[2025-08-28] MEDS: LEVOTHYROXINE SODIUM 25 MCG TAB PO SCH (13:05)
[2025-08-28] MEDS: LEVOTHYROXINE SODIUM 112 MCG TAB PO SCH (13:05)
[2025-08-28] MEDS: CHOLECALCIFEROL (VITD3) 1,000UNIT=25mCg TAB PO SCH (13:05)
[2025-08-28] MEDS: SODIUM CHLOR 0.9% PF (SALINE LOCK) 10ML VIAL/SYR IV SCH (14:21)
--- NOTE | 2025-08-28 16:36 | DVHSR ---
APPROVED REPORT EXAM: Two-dimensional and M-mode echocardiogram with Doppler and color Doppler. Blood Pressure: 157/47 mmHg INDICATION Hypertensive Urgency RISK FACTORS Height: 65, Weight: 145 DIMENSIONS LVDd (3.8-5.7cm) LA (2D) 3.7 (1.9-4.0cm) Aortic Root 3.5 (2.0-3.7cm) LVDs (2.5-4.0cm) LA (MM) (1.9-4.0cm) Aortic Cusp Exc 2.0 (1.5-2.0cm) EF (%) 72.0 (55-70%) Rt. Atrium 3.3 (1.9-4.0cm) Asc. Aorta cm Mitral Valve Mitral Mitral Stenosis E wave 0.68m/s MV Mean GR. mmHg A wave 1.21m/s MV Peak GR. mmHg E/A ratio 0.6 2D MVA cm2 DECEL Time 273ms PRESS 1/2 Time ms Aortic Valve Aortic Valve Aortic Stenosis V1 0.82m/s AO Mean GR. 2mmHg V2 0.91m/s AO Peak GR. 3mmHg LVOT Diameter 1.8 (1.8-2.4cm) Doppler SANDRA 2.29cm2 Pulmonic Valve V2 0.99m/s Other Information Technically limited study due to patient talking the whole study. Conclusion Left ventricle: The cavity size is normal. Systolic function is normal. The estimated ejection fraction is 65-70%. Grade I diastolic dysfunction. Right ventricle: Systolic function is normal. Mitral valve: There is no stenosis. There is trace regurgitation. Aortic valve: The valve is tricuspid. There is no stenosis. There is no regurgitation. Tricuspid valve: There is no stenosis. There is trace regurgitation. Pulmonic valve: There is no regurgitation. Pericardium: A trivial pericardial effusion is identified. Inferior vena cava: The vessel is normal in size. There is normal respirophasic variation consistent with a right atrial pressure of3 mm Hg.
--- NOTE | 2025-08-28 16:56 | DVHPN2 ---
Progress Note - Dictate Date Seen: Aug 28, 2025 Medical Necessity Reason Pt with a Central, PICC or Fol: No Subjective PT WELL KNOWN TO ME ACCELERATED HTN HCX OF CAD HX OF ENDOCARDITIS DIABETES NEPHROPATHY VASCULOPATHY NEUROPATHY d vital signs Vital Sign Date Time Temp Pulse Resp B/P (MAP) Pulse Ox O2 Delivery O2 Flow Rate FiO2 08/28/25 15:05 69 08/28/25 14:00 144/64 (90) 95 08/28/25 10:28 26 08/28/25 08:32 Room Air* 0 21 08/28/25 08:31 97.5 97.5 medications Current Medications Medications Dose Ordered Sig/Melania Route Start Time Stop Time Status Last Admin Dose Admin Sodium Chloride 10 ml Q8HR IV 08/28/25 14:00 08/28/25 14:21 10 ML Acetaminophen/ Hydrocodone Bitart 1 tab Q4HP PRN PO 08/28/25 11:15 Hold Ondansetron HCl 4 mg Q4HP PRN IV 08/28/25 11:15 Docusate Sodium 100 mg BIDPRN PRN PO 08/28/25 11:15 Acetaminophen 650 mg Q6HP PRN PO 08/28/25 11:15 Hold Nitroglycerin 0.4 mg Q5MINP PRN SL 08/28/25 11:15 Morphine Sulfate 2 mg Q30M PRN IV 08/28/25 11:45 Hold Diagnostic Test (Pha) 1 strip ACHS 08/28/25 11:30 Insulin Human Regular ACHS SC 08/28/25 11:30 Dextrose 50 ml UD PRN IV 08/28/25 11:15 Clopidogrel Bisulfate 75 mg DAILY PO 08/29/25 10:00 Cholecalciferol 5,000 unit EOD PO 08/28/25 12:15 08/28/25 13:05 5,000 UNIT Levothyroxine Sodium 112 mcg QAM@0600 PO 08/28/25 11:55 08/28/25 13:05 112 MCG Patient Own Medication 500 mg DAILY PO 08/29/25 10:00 Propranolol HCl 10 mg DAILY PO 08/29/25 10:00 Celecoxib 200 mg DAILYPRN PRN PO 08/28/25 12:15 Hold Pantoprazole Sodium 40 mg DAILY PO 08/29/25 10:00 Zirconium Oxide 10 gm 2XW PO 08/28/25 12:00 Hold Patient Own Medication 1 tab BID PO 08/28/25 22:00 Levothyroxine Sodium 25 mcg QAM@0600 PO 08/28/25 11:57 08/28/25 13:05 25 MCG laboratory and microbiology Laboratory Tests 08/28/25 08:58 Test 08/28/25 08:58 Range/Units Serum Glucose 121 H 74-106 mg/dL Problem List ACCELERATED HTN HCX OF CAD HX OF ENDOCARDITIS DIABETES NEPHROPATHY VASCULOPATHY NEUROPATHY d Assessment/Plan CONT MEDS TITRATE VERQUVO PRN CLONIDINE Plan discussed with: Patient SHEILA KAYE MD Aug 28, 2025 16:56
[2025-08-28 20:15] VITALS: RESP 21; O2SAT 92
[2025-08-28 22:50] VITALS: BP 140/69; PULSE 70; RESP 17; TEMP 97.9; O2SAT 94
[2025-08-28 23:35] VITALS: BP 140/69; PULSE 72; RESP 17; TEMP 97.9; O2SAT 94
[2025-08-29] VITALS (9 sets, daily range): BP systolic 138–188; BP diastolic 69–100; PULSE 65–74; RESP 16–18; TEMP 97.3–98.6; O2SAT 93–97
[2025-08-29 07:03] LABS: Hematocrit 39.3 % (36.0-46.0); Hemoglobin 13.4 g/dL (12.2-16.2); Mean Corpuscular Hemoglobin 31.5 pg (28.0-32.0); Mean Corpuscular Volume 92.6 fL (80.0-100.0); Nucleated Red Blood Cells % 0.1 %
[2025-08-29 07:19] LABS: Alanine Aminotransferase 12 U/L (7-40); Alkaline Phosphatase 69 U/L (46-116); Anion Gap 8 (5-15); BUN/Creatinine Ratio 18.3 (10.0-20.0); Blood Urea Nitrogen 11 mg/dL (9-23); Calcium 9.2 mg/dL (8.7-10.4); Carbon Dioxide 28 mmol/L (20-31); Chloride 103 mmol/L (98-107); Potassium 4.0 mmol/L (3.5-5.1); Sodium 139 mmol/L (136-145); Total Protein 6.5 g/dL (5.7-8.2)
[2025-08-29 07:20] LABS: Albumin 3.6 g/dL (3.2-4.8)
[2025-08-29 07:21] LABS: Bilirubin, Total 0.6 mg/dL (0.2-1.0); Glucose 142 mg/dL (74-106)
[2025-08-29] MEDS: CLOPIDOGREL BISULFATE 75 MG TAB PO SCH (09:26)
[2025-08-29] MEDS: PROPRANOLOL HCL 20 MG TAB PO SCH (09:26)
[2025-08-29] MEDS: PANTOPRAZOLE 40 MG TAB PO SCH (09:31)
[2025-08-29] MEDS: hydrALAZINE HCL 20 MG/ML VL IV ONE (11:56)
--- NOTE | 2025-08-29 14:25 | DVHPN2 ---
Reviewed: Care Plan, H&P, Labs, Medications, Previous Orders, Radiology Changes from previous H/P or p: No Changes Eyes: No Pain, No Vision change, No Conjunctivae inflammation, No Eyelid inflammation, No Other, No Redness ENT: No Ear pain, No Ear discharge, No Nose pain, No Nose discharge, No Nose congestion, No Mouth pain, No Mouth swelling, No Throat pain, No Throat swelling, No Other Cardiovascular: No Chest Pain, No Palpitations, No Orthopnea, No Paroxysmal Noc. Dyspnea, No Edema, No Lt Headedness, No Other Respiratory: No Cough, No Dry, No Shortness of breath, No SOB with excertion, No Wheezing, No Hemoptysis, No Pleuritic Pain, No Sputum, No Other Gastrointestinal: No Nausea, No Vomiting, No Abdominal Pain, No Diarrhea, No Constipation, No Melena, No Hematochezia, No Other Genitourinary: No Dysuria, No Frequency, No Incontinence, No Hematuria, No Retention, No Other Musculoskeletal: No other, No neck pain, No shoulder pain, No arm pain, No back pain, No hand pain, No leg pain, No foot pain Skin: No Rash, No Lesions, No Jaundice, No Bruising, No Other Objective Vitals Vital Signs Date Time Temp Pulse Resp B/P (MAP) Pulse Ox O2 Delivery O2 Flow Rate FiO2 08/29/25 12:43 97.9 72 18 188/100 (129) 96 97.9 08/28/25 23:35 Nasal Cannula* 2 28 Intake/Output Intake and Output 08/29/25 07:00 Intake Total 100 ml Balance 100 ml Intake Oral 100 ml Medications Current Medications Medications Dose Ordered Sig/Melania Route Start Time Stop Time Status Last Admin Dose Admin Sodium Chloride 10 ml Q8HR IV 08/28/25 14:00 08/29/25 06:02 10 ML Acetaminophen/ Hydrocodone Bitart 1 tab Q4HP PRN PO 08/28/25 11:15 Hold Ondansetron HCl 4 mg Q4HP PRN IV 08/28/25 11:15 Docusate Sodium 100 mg BIDPRN PRN PO 08/28/25 11:15 Acetaminophen 650 mg Q6HP PRN PO 08/28/25 11:15 Hold Nitroglycerin 0.4 mg Q5MINP PRN SL 08/28/25 11:15 Morphine Sulfate 2 mg Q30M PRN IV 08/28/25 11:45 Hold Diagnostic Test (Pha) 1 strip ACHS 08/28/25 11:30 08/29/25 11:56 1 STRIP Insulin Human Regular ACHS SC 08/28/25 11:30 Dextrose 50 ml UD PRN IV 08/28/25 11:15 Clopidogrel Bisulfate 75 mg DAILY PO 08/29/25 10:00 08/29/25 09:26 75 MG Cholecalciferol 5,000 unit EOD PO 08/28/25 12:15 08/28/25 13:05 5,000 UNIT Levothyroxine Sodium 112 mcg QAM@0600 PO 08/28/25 11:55 08/29/25 06:01 112 MCG Patient Own Medication 500 mg DAILY PO 08/29/25 10:00 Propranolol HCl 10 mg DAILY PO 08/29/25 10:00 08/29/25 09:26 10 MG Celecoxib 200 mg DAILYPRN PRN PO 08/28/25 12:15 Hold Pantoprazole Sodium 40 mg DAILY PO 08/29/25 10:00 08/29/25 09:31 40 MG Zirconium Oxide 10 gm 2XW PO 08/28/25 12:00 Hold Patient Own Medication 1 tab BID PO 08/28/25 22:00 Levothyroxine Sodium 25 mcg QAM@0600 PO 08/28/25 11:57 08/29/25 06:01 25 MCG Clonidine HCl 0.1 mg Q6HP PRN PO 08/29/25 01:15 08/29/25 09:31 0.1 MG Laboratory Results Laboratory Tests 08/29/25 06:13 Chemistry Test 08/29/25 06:13 Albumin 3.6 g/dL (3.2-4.8) Calcium Level 9.2 mg/dL (8.7-10.4) Total Protein 6.5 g/dL (5.7-8.2) LFT Test 08/29/25 06:13 Alanine Aminotransferase (ALT) 12 U/L (7-40) Alkaline Phosphatase 69 U/L (46-116) Aspartate Amino Transferase (AST) 28 U/L (13-40) Total Bilirubin 0.6 mg/dL (0.2-1.0) Labs and/or images reviewed: Labs reviewed by me, Image(s) reviewed by me Assessment/Plan Assessment/Plan Accelerated Hypertension cardiology consult by Dr. Dyson appreciated clonidine History of CAD with stents History of endocarditis Hypothyroidism : Synthroid Tremors: Propranolol Uncontrolled diabetes: Patient on insulin pump Diabetic neuropathy vasculopathy nephropathy Spent 55 minutes Plan discussed with: Patient Date of Service: Aug 29, 2025 Billing Provider: LYNN PRADO MD Common Visit Codes: [id number] INP/OBS CARE(HIGH) LYNN PRADO MD Aug 29, 2025 14:25
[2025-08-29] MEDS: [UNRECOGNIZED DRUG - OTHER] PO SCH (14:49)
[2025-08-30 01:00] VITALS: BP 162/77; PULSE 67; RESP 18; TEMP 97.5; O2SAT 94
[2025-08-30 05:00] VITALS: BP 125/64; PULSE 65; RESP 18; TEMP 97.3; O2SAT 93
[2025-08-30 06:01] LABS: Hematocrit 38.1 % (36.0-46.0); Hemoglobin 13.1 g/dL (12.2-16.2); Mean Corpuscular Hemoglobin 31.7 pg (28.0-32.0); Mean Corpuscular Volume 92.2 fL (80.0-100.0); Nucleated Red Blood Cells % 0.0 %
[2025-08-30 06:21] LABS: Alanine Aminotransferase 10 U/L (7-40); Alkaline Phosphatase 67 U/L (46-116); Anion Gap 7 (5-15); BUN/Creatinine Ratio 31.0 (10.0-20.0); Blood Urea Nitrogen 18 mg/dL (9-23); Calcium 9.3 mg/dL (8.7-10.4); Carbon Dioxide 28 mmol/L (20-31); Chloride 101 mmol/L (98-107); Glucose 102 mg/dL (74-106); Magnesium 2.1 mg/dL (1.6-2.6); Potassium 4.1 mmol/L (3.5-5.1); Total Protein 6.2 g/dL (5.7-8.2)
[2025-08-30 06:22] LABS: Albumin 3.5 g/dL (3.2-4.8)
[2025-08-30 06:23] LABS: Bilirubin, Total 0.5 mg/dL (0.2-1.0); Sodium 136 mmol/L (136-145)
[2025-08-30 08:00] VITALS: PULSE 64
[2025-08-30 11:00] VITALS: BP 114/48; PULSE 61; TEMP 97.6; O2SAT 93
--- NOTE | 2025-08-30 13:03 | DVHPN2 ---
Reviewed: Care Plan, H&P, Labs, Medications, Previous Orders, Radiology Changes from previous H/P or p: No Changes Eyes: No Pain, No Vision change, No Conjunctivae inflammation, No Eyelid inflammation, No Other, No Redness ENT: No Ear pain, No Ear discharge, No Nose pain, No Nose discharge, No Nose congestion, No Mouth pain, No Mouth swelling, No Throat pain, No Throat swelling, No Other Cardiovascular: No Chest Pain, No Palpitations, No Orthopnea, No Paroxysmal Noc. Dyspnea, No Edema, No Lt Headedness, No Other Respiratory: No Cough, No Dry, No Shortness of breath, No SOB with excertion, No Wheezing, No Hemoptysis, No Pleuritic Pain, No Sputum, No Other Gastrointestinal: No Nausea, No Vomiting, No Abdominal Pain, No Diarrhea, No Constipation, No Melena, No Hematochezia, No Other Genitourinary: No Dysuria, No Frequency, No Incontinence, No Hematuria, No Retention, No Other Musculoskeletal: No other, No neck pain, No shoulder pain, No arm pain, No back pain, No hand pain, No leg pain, No foot pain Skin: No Rash, No Lesions, No Jaundice, No Bruising, No Other Objective Vitals Vital Signs Date Time Temp Pulse Resp B/P (MAP) Pulse Ox O2 Delivery O2 Flow Rate FiO2 08/30/25 11:08 61 114/48 08/30/25 11:00 97.6 93 97.6 08/30/25 05:00 18 08/29/25 20:00 Room Air* 0 21 Intake/Output Intake and Output 08/30/25 07:00 Intake Total 990 ml Balance 990 ml Intake Oral 990 ml # Voids 3 # Bowel Movements 2 Medications Current Medications Medications Dose Ordered Sig/Melania Route Start Time Stop Time Status Last Admin Dose Admin Sodium Chloride 10 ml Q8HR IV 08/28/25 14:00 08/30/25 05:33 10 ML Acetaminophen/ Hydrocodone Bitart 1 tab Q4HP PRN PO 08/28/25 11:15 Hold Ondansetron HCl 4 mg Q4HP PRN IV 08/28/25 11:15 Docusate Sodium 100 mg BIDPRN PRN PO 08/28/25 11:15 Acetaminophen 650 mg Q6HP PRN PO 08/28/25 11:15 Hold Nitroglycerin 0.4 mg Q5MINP PRN SL 08/28/25 11:15 Morphine Sulfate 2 mg Q30M PRN IV 08/28/25 11:45 Hold Diagnostic Test (Pha) 1 strip ACHS 08/28/25 11:30 08/30/25 11:30 1 STRIP Insulin Human Regular ACHS SC 08/28/25 11:30 Dextrose 50 ml UD PRN IV 08/28/25 11:15 Clopidogrel Bisulfate 75 mg DAILY PO 08/29/25 10:00 08/30/25 11:09 75 MG Cholecalciferol 5,000 unit EOD PO 08/28/25 12:15 08/30/25 11:09 5,000 UNIT Levothyroxine Sodium 112 mcg QAM@0600 PO 08/28/25 11:55 08/30/25 05:58 112 MCG Patient Own Medication 500 mg DAILY PO 08/29/25 10:00 Propranolol HCl 10 mg DAILY PO 08/29/25 10:00 08/30/25 11:08 10 MG Celecoxib 200 mg DAILYPRN PRN PO 08/28/25 12:15 Hold Pantoprazole Sodium 40 mg DAILY PO 08/29/25 10:00 08/30/25 11:09 40 MG Zirconium Oxide 10 gm 2XW PO 08/28/25 12:00 Hold Patient Own Medication 1 tab BID PO 08/28/25 22:00 Levothyroxine Sodium 25 mcg QAM@0600 PO 08/28/25 11:57 08/30/25 05:58 25 MCG Clonidine HCl 0.2 mg Q4HPRN PRN PO 08/29/25 15:00 08/30/25 00:12 0.2 MG Laboratory Results Laboratory Tests 08/30/25 05:13 Chemistry Test 08/30/25 05:13 Albumin 3.5 g/dL (3.2-4.8) Calcium Level 9.3 mg/dL (8.7-10.4) Magnesium Level 2.1 mg/dL (1.6-2.6) Total Protein 6.2 g/dL (5.7-8.2) LFT Test 08/30/25 05:13 Alanine Aminotransferase (ALT) 10 U/L (7-40) Alkaline Phosphatase 67 U/L (46-116) Aspartate Amino Transferase (AST) 27 U/L (13-40) Total Bilirubin 0.5 mg/dL (0.2-1.0) Labs and/or images reviewed: Labs reviewed by me, Image(s) reviewed by me Assessment/Plan Assessment/Plan Accelerated Hypertension cardiology consult by Dr. Dyson appreciated clonidine History of CAD with stents History of endocarditis Hypothyroidism : Synthroid Tremors: Propranolol Uncontrolled diabetes: Patient on insulin pump Diabetic neuropathy vasculopathy nephropathy Time spent 50 minutes Plan discussed with: Patient My Orders Orders - LYNN PRADO MD Procedure Category Date Status Time Clonidine Hcl Tablet PHA 08/29/25 In Process (Catapres Tablet) 15:00 Consistent DIET 08/29/25 Transmitted Carb(Ccho)Diabetes Dinner Date of Service: Aug 30, 2025 Billing Provider: LYNN PRADO MD Common Visit Codes: [id number] INP/OBS CARE(HIGH) LYNN PRADO MD Aug 30, 2025 13:03
--- NOTE | 2025-08-30 13:07 | DVHDS2 ---
Discharge Summary Date of Admission Aug 28, 2025 at 11:09 Date of Discharge: Aug 30, 2025 Admitting Diagnosis Elevated blood pressure Wounds: None Labs/Diagnostic Data: Laboratory Results Test 08/30/25 12:12 08/30/25 05:13 08/28/25 11:50 POC Glucose 170 mg/dl (70-106) White Blood Count 7.8 10^3/uL (4.4-10.8) Red Blood Count 4.14 10^6/uL (4.0-5.20) Hemoglobin 13.1 g/dL (12.2-16.2) Hematocrit 38.1 % (36.0-46.0) Mean Corpuscular Volume 92.2 fL (80.0-100.0) Mean Corpuscular Hemoglobin 31.7 pg (28.0-32.0) Mean Corpuscular Hemoglobin Concent 34.4 g/dL (32.0-36.0) Red Cell Distribution Width 13.0 % (11.8-14.3) Platelet Count 284 10^3/uL (140-450) Mean Platelet Volume 7.8 fL (6.9-10.8) Neutrophils (%) (Auto) 58.0 % (37.0-80.0) Lymphocytes (%) (Auto) 24.1 % (10.0-50.0) Monocytes (%) (Auto) 11.0 % (0.0-12.0) Eosinophils (%) (Auto) 6.0 % (0.0-7.0) Basophils (%) (Auto) 0.9 % (0.0-2.0) Neutrophils # (Auto) 4.5 10 ^3/uL (1.6-8.6) Lymphocytes # (Auto) 1.9 10 ^3/uL (0.4-5.4) Monocytes # (Auto) 0.9 10 ^3/uL (0-1.3) Eosinophils # (Auto) 0.5 10 ^3/uL (0-0.8) Basophils # (Auto) 0.1 10 ^3/uL (0-0.2) Nucleated Red Blood Cells 0.0 % Sodium Level 136 mmol/L (136-145) Potassium Level 4.1 mmol/L (3.5-5.1) Chloride Level 101 mmol/L (98-107) Carbon Dioxide Level 28 mmol/L (20-31) Anion Gap 7 (5-15) Blood Urea Nitrogen 18 mg/dL (9-23) Creatinine 0.58 mg/dL (0.550-1.02) Glomerular Filtration Rate Calc 88 mL/min (>90) BUN/Creatinine Ratio 31.0 (10.0-20.0) Serum Glucose 102 mg/dL (74-106) Calcium Level 9.3 mg/dL (8.7-10.4) Magnesium Level 2.1 mg/dL (1.6-2.6) Total Bilirubin 0.5 mg/dL (0.2-1.0) Aspartate Amino Transferase (AST) 27 U/L (13-40) Alanine Aminotransferase (ALT) 10 U/L (7-40) Alkaline Phosphatase 67 U/L (46-116) Total Protein 6.2 g/dL (5.7-8.2) Albumin 3.5 g/dL (3.2-4.8) Troponin I High Sensitivity 4 ng/L (</=34) Other Laboratory Tests 08/30/25 05:13 Brief Hx & Hospital Course: 65-year-old female with a history of coronary artery disease with stents endocarditis hypothyroidism on propranolol for tremors uncontrolled diabetes came in for accelerated hypertension blood pressure was 200 controlled with the home medications blood pressure now normal patient is asymptomatic no chest pain no shortness of breath being discharged home patient wants to be discharged home today . She was seen by [employer] Dr. Dyson patient has an appointment with him on 09/13/2025 Consults/Reason for consult Cardiology Dr. Dyson Operations or Procedures None Condition at Discharge: Fair Final Diagnosis/Problems List Accelerated Hypertension cardiology consult by Dr. Dyson appreciated clonidine History of CAD with stents History of endocarditis Hypothyroidism : Synthroid Tremors: Propranolol Uncontrolled diabetes: Patient on insulin pump Diabetic neuropathy vasculopathy nephropathy Discharge Disposition: Home Discharge Instruct/Medications Diet: Cardiac 2g Na,low cholest Activity: Light activity Follow Up/Referral: Keep Your appointment with Dr Dyson on 09/13/2025 Resume all your previous home medications Medications: none Scheduled Cholecalciferol (Vitamin D3), 5,000 UNIT OR EVERY OTHER DAY, (Reported) Clopidogrel Bisulfate (Plavix), 1 TAB PO DAILY, (Reported) Clotrimazole (Lotrimin), 1 APPLIC TOP DAILY, (Reported) Cyanocobalamin (Vitamin B 12), 5,000 MCG PO SAT,SUN, (Reported) Esomeprazole Magnesium (Esomeprazole Magnesium Dr), 1 CAP PO DAILY, (Reported) Levothyroxine Sodium (Levothyroxine Sodium), 1 TAB PO EVERY OTHER DAY, (Reported) Magnesium Bisglycinate (Mag Glycinate), 500 MG PO DAILY, (Reported) Propranolol HCl (Propranolol Hydrochloride), 1 TAB PO DAILY, (Reported) Sodium Zirconium Cyclosilicate (Lokelma), 1 PACK PO 2XW, (Reported) Vericiguat (Verquvo), 1 TAB PO BID, (Reported) [Insulin Pump], 0.6 SC CONTINUOUS, (Reported) Scheduled PRN Celecoxib (Celecoxib), 1 CAP PO DAILYPRN PRN, (Reported) Miscellaneous Medications Patients Own Medication (Patients Own Medication), EACHEYE, (Reported) Discontinued Medications Amlodipine Besylate (Amlodipine Besylate), 5 MG PO BID, (Reported) 39 (Time taken for discharge summary 39 minutes) Discharge Statement: "Patient was advised to return to the ER or call 911 if any headaches, dizziness, shortness of breath, chest pain, abdominal pain, bleeding, fevers, or worsening of medical condition. Patient was counseled about treatment plan, medications, possible side effects, patientverbalized understanding. All questions were answered to the best of my ability. This discharge took greater then 30 minutes in planning, reviewing documentation, counseling the patient, and discussing with other team members." ASSESSMENT ASSESSMENT Hospital Course Improved Assessment Accelerated Hypertension cardiology consult by Dr. Dyson appreciated clonidine History of CAD with stents History of endocarditis Hypothyroidism : Synthroid Tremors: Propranolol Uncontrolled diabetes: Patient on insulin pump Diabetic neuropathy vasculopathy nephropathy Date of Service: Aug 30, 2025 Billing Provider: LYNN PRADO MD Common Visit Codes: 72278-SKV/OBS DISCH DAY >30min LYNN PRADO MD Aug 30, 2025 13:07
[2025-08-30 13:24] VITALS: BP 133/63; PULSE 62; RESP 16; TEMP 98.2; O2SAT 95
[2025-08-30 14:02] VITALS: BP 114/48; PULSE 61; TEMP 36.8
== END 2025-08-30 14:51 | disposition home or self-care (01) | DRG 305 ==
LOC: ER 19:01 → OVERFLOW 08-28 11:09 → TELE-WESTW 08-28 11:11
PROVIDERS: ADMIT Family Medicine; ATTEND Family Medicine
DX: I16.0 Hypertensive urgency (principal); E03.9 Hypothyroidism, unspecified; E11.40 Type 2 diabetes mellitus with diabetic neuropathy, unspecified; I10 Essential (primary) hypertension; E78.5 Hyperlipidemia, unspecified; I25.10 Atherosclerotic heart disease of native coronary artery without angina pectoris; Z96.41 Presence of insulin pump (external) (internal); E11.65 Type 2 diabetes mellitus with hyperglycemia; E11.21 Type 2 diabetes mellitus with diabetic nephropathy; G25.0 Essential tremor; Z79.4 Long term (current) use of insulin; Z88.6 Allergy status to analgesic agent; Z86.79 Personal history of other diseases of the circulatory system; Z91.048 Other nonmedicinal substance allergy status; Z95.5 Presence of coronary angioplasty implant and graft; Z90.49 Acquired absence of other specified parts of digestive tract; Z98.51 Tubal ligation status
CPT/HCPCS: 36415; 71045; 80048; 80053; 82962; 83735; 84484; 85025; 93005; 93306; G0378; J1815

== ENCOUNTER 2025-08-27 19:11 | Emergency (ER) | payer MEDICARE, BC ==
[2025-08-27 21:34] LABS: Hematocrit 41.3 % (36.0-46.0); Hemoglobin 13.6 g/dL (12.2-16.2); Mean Corpuscular Hemoglobin 30.8 pg (28.0-32.0); Mean Corpuscular Volume 93.4 fL (80.0-100.0); Nucleated Red Blood Cells % 0.1 %
[2025-08-27 21:36] LABS: Chloride 104 mmol/L (98-107); Potassium 4.0 mmol/L (3.5-5.1); Sodium 141 mmol/L (136-145)
[2025-08-27 21:37] LABS: Anion Gap 8 (5-15); Carbon Dioxide 29 mmol/L (20-31)
[2025-08-27 21:38] LABS: Calcium 9.8 mg/dL (8.7-10.4)
--- NOTE | 2025-08-27 21:40 | DVH ---
CHEST RADIOGRAPH INDICATION: cp TECHNIQUE: Single frontal view of the chest was obtained COMPARISON: None FINDINGS: Lines and Tubes: None Lungs: Mildly prominent bibasilar interstitial markings. May represent atelectasis. Pleura: No effusion. No pneumothorax. Cardiomediastinal contours: Unremarkable Bones: No acute osseous abnormality. IMPRESSION: 1. Possible bibasilar areas of atelectasis or scarring recommend comparison with the prior studies.
[2025-08-27 21:42] LABS: BUN/Creatinine Ratio 25.4 (10.0-20.0); Blood Urea Nitrogen 18 mg/dL (9-23)
[2025-08-27 21:57] LABS: Glucose 138 mg/dL (74-106)
--- NOTE | 2025-08-27 23:26 | ED.PDOC ---
HPI Comments 85 y/o F, with PMHx of DM, CAD, UTI's, HTN, HLD, and DM presents to the ED for CC of high blood pressure. EMS reports, patient is coming from home where she c/o high blood pressure reading with associated intermittent chest pain onset today (08/27/25). Per EMS, patient further c/o of UTI symptoms including increased frequency with left sided pelvic pressure. Patient denies nausea, vomiting, or headache. Time Seen by MD: 19:00 Reviewed Notes: Medications, Allergies Information Source: Patient Mode of Arrival: Ambulatory Severity: Moderate Timing: Days Duration: Since onset Past Medical History PAST MEDICAL HISTORY: CAD, DM, High Lipids, HTN, Thyroid, UTI'S Surgical History: Cholecystectomy, PTCA, Tubal Ligation Family History Family History: Reviewed,noncontributory to illness, No family hx of Cancer, No family hx of DM, No family hx of Heart solitario, No family hx of HTN, No family hx ofKidney solitario, No family hx of Liver solitario, No family hx of Lung solitario, No family hx of Stroke Social History Smoker: Non-Smoker Alcohol: Denies ETOH Use Drugs: Denies Drug Use Lives In: Home Constitutional: denies: chills, diaphoresis, fatigue, fever, malaise, sweats, weakness, others EENTM: denies: blurred vision, double vision, ear bleeding, ear discharge, ear drainage, ear pain, ear ringing, eye pain, eye redness, hearing loss, mouth pain, mouth swelling, nasal discharge, nose bleeding, nose congestion, nose pain, photophobia, tearing, throat pain, throat swelling, voice changes, others Respiratory: denies: cough, hemoptysis, orthopnea, SOB at rest, shortness of breath, SOB with excertion, stridor, wheezing, others Cardiovascular: reports: chest pain; denies: dizzy spells, diaphoresis, Dyspnea on exertion, edema, irregular heart beat, left arm pain, lightheadedness, palpitations, PND, syncope, others Gastrointestinal: denies: abdomen distended, abdominal pain, blood streaked bowels, constipated, diarrhea, dysphagia, difficulty swallowing, hematemesis, melena, nausea, poor appetite, poor fluid intake, rectal bleeding, rectal pain, vomiting, others Genitourinary: denies: abnormal vagina bleeding, burning, dyspareunia, dysuria, flank pain, frequency, hematuria, incontinence, pain, , vagina discharge, urgency, others Neurological: denies: dizziness, fainting, headache, left sided numbness, left sided weakness, numbness, paresthesia, pre-existing deficit, right sided n umbness, right sided weakness, seizure, speech problems, tingling, tremors, weakness, others Musculoskeletal: denies: back pain, gout, joint pain, joint swelling, muscle pain, muscle stiffness, neck pain, others Integumetry: denies: bruises, change in color, change in hair/nails, dryness, laceration, lesions, lumps, rash, wounds, others Allergic/Immunocompromised: denies: Difficulty Healing, Frequent Infections, Hives, Itching, others Hematologic/Lymphatic: denies: anemia, blood clots, easy bleeding, easy bruising, swollen glands, others Endocrine: denies: excessive hunger, excessive sweating, excessive thirst, excessive urination, flushing, intolerance to cold, intolerance to heat, unexplained weight gain, unexplained weight loss, others Psychiatric: denies: anxiety, bipolar disorder, depression, hopeless, panic disorder, schizophrenia, sleepless, suicidal, others All Other Systems: Reviewed and Negative Physical Exam General Appearance: No Apparent Distress, Normal HEENT: Normal ENT Inspection, Pharynx Normal, TMs Normal Neck: Full Range of Motion, Non-Tender, Normal, Normal Inspection Respiratory: Chest Non-Tender, Lungs Clear, No Accessory Muscle Use, No Respiratory Distress, Normal Breath Sounds Cardiovascular: No Edema, No JVD, No Murmur, No Gallop, Normal Peripheral Pulses, Regular Rate/Rhythm Breast Exam: Deferred Gastrointestinal: No Organomegaly, Non Tender, No Pulsatile Mass, Normal Bowel Sounds, Soft Genitalia: Deferred Pelvic: Deferred Rectal: Deferred Extremities: No calf tenderness, Normal capillary refill, Normal inspection, Normal range of motion, Non-tender, No pedal edema Musculoskeletal : Apperance: Normal Neurologic: Alert, nanoscience technician II-XII nml as Tested, No Motor Deficits, Normal Affect, Normal Mood, No Sensory Deficits Cerebellar Function: Normal Reflexes: Normal Skin: Dry, Normal Color, Warm Lymphatic: No Adenopathy Was a procedure done? Was a procedure done?: No CP Differential Dx Differential Diagnosis: A-fib, A-Flutter, Angina, Anxiety / Panic Attack Differential Diagnosis: HTN Essential Differential Diagnosis: Angina, Chest Wall Pain, Cholelithiasis, Gastritis, Pneumonia X-Ray, Labs, Meds, VS Lab Test 08/27/25 21:58 08/27/25 21:07 Range/Units Troponin I High Sensitivity 4 4 </=34 ng/L White Blood Count 6.9 4.4-10.8 10^3/uL Red Blood Count 4.42 4.0-5.20 10^6/uL Hemoglobin 13.6 12.2-16.2 g/dL Hematocrit 41.3 36.0-46.0 % Mean Corpuscular Volume 93.4 80.0-100.0 fL Mean Corpuscular Hemoglobin 30.8 28.0-32.0 pg Mean Corpuscular Hemoglobin Concent 32.9 32.0-36.0 g/dL Red Cell Distribution Width 13.1 11.8-14.3 % Platelet Count 310 140-450 10^3/uL Mean Platelet Volume 7.7 6.9-10.8 fL Neutrophils (%) (Auto) 51.4 37.0-80.0 % Lymphocytes (%) (Auto) 30.5 10.0-50.0 % Monocytes (%) (Auto) 11.5 0.0-12.0 % Eosinophils (%) (Auto) 5.7 0.0-7.0 % Basophils (%) (Auto) 0.9 0.0-2.0 % Neutrophils # (Auto) 3.5 1.6-8.6 10 ^3/uL Lymphocytes # (Auto) 2.1 0.4-5.4 10 ^3/uL Monocytes # (Auto) 0.8 0-1.3 10 ^3/uL Eosinophils # (Auto) 0.4 0-0.8 10 ^3/uL Basophils # (Auto) 0.1 0-0.2 10 ^3/uL Nucleated Red Blood Cells 0.1 % Sodium Level 141 136-145 mmol/L Potassium Level 4.0 3.5-5.1 mmol/L Chloride Level 104 98-107 mmol/L Carbon Dioxide Level 29 20-31 mmol/L Anion Gap 8 5-15 Blood Urea Nitrogen 18 9-23 mg/dL Creatinine 0.71 0.550-1.02 mg/dL Glomerular Filtration Rate Calc 82 >90 mL/min BUN/Creatinine Ratio 25.4 H 10.0-20.0 Serum Glucose 138 H 74-106 mg/dL Calcium Level 9.8 8.7-10.4 mg/dL [address] [address] Ph: [phone] DIAGNOSTIC IMAGING Diagnostic Imaging Report : [id number] Signed PATIENT: SAURAV WISE ACCT: [id number] UNIT: [id number] : 1940 LOC: ER ROOM / BED: / AGE / SEX: 85 / F ADM STATUS: PRE ER SERVICE 99 ORDERING PHYSICIAN: JOLIE BORGES MD PROCEDURE(s): CXR1 - CHEST XRAY 1 VIEW REASON: cp ORDER NUMBER(s): [id number], ACCESSION NUMBER(s): [id number] CHEST RADIOGRAPH INDICATION: cp TECHNIQUE: Single frontal view of the chest was obtained COMPARISON: None FINDINGS: Lines and Tubes: None Lungs: Mildly prominent bibasilar interstitial markings. May represent atelectasis. Pleura: No effusion. No pneumothorax. Cardiomediastinal contours: Unremarkable Bones: No acute osseous abnormality. IMPRESSION: 1. Possible bibasilar areas of atelectasis or scarring recommend comparison with the prior studies. ATED BY: LIBERTAD OSHEA Jr., DO DICTATED DATE/TIME: 08/27/252136 SIGNED BY: LIBERTAD OSHEA Jr., SIGNED DATE/TIME: 08/27/252136 CC: X-Ray, Labs, Meds, VS Comment Previous history reviewed: CAD, DM, High Lipids, HTN, Thyroid, UTI'S, Cholecystectomy, PTCA, Tubal Ligation The following tests were ordered, and results were reviewed by me: CBC, CMP, TROPONIN, CHEST XRAY Additional Information was gathered from interviewing the following independent historians: N/A I reviewed and agreed with the following test results read by other providers: CHEST XRAY I discussed treatment and results with medical personnel and: patient Comprehensive systems review obtained and negative except for what is stated in the HPI. Time of 1ST Reevaluation: 23:27 Reevaluation 1ST: Unchanged Patient Education/Counseling: Diagnosis, Treatment, Prognosis, Need For Follow Up Family Education/Counseling: No Family Present Comments This is a patient who presents with chest pain and high blood pressure. She has multiple cardiac risk factors with a heart score of seven. The workup. Does not show evidence of acute KS however I am concerned about unstable angina with a blood pressure as an exacerbating factor that is putting extra stress on her heart. Patient will be admitted for further evaluation and blood pressure control. She will also need to have Cardiology evaluation for unstable angina. SEPSIS Sepsis Screen Physician Orders Chest Xray 1 View (08/27/25 21:00) Electrocardigram (08/27/25 21:00) Continuous Ekg Monitoring 08,12,16,20,00,04 (08/27/25 21:00) Urinalysis (08/27/25 21:00) Troponin-I Hs (08/28/25 00:00) Electrocardigram (08/27/25 22:00) Electrocardigram (08/28/25 00:00) Laboratory Tests Test 08/27/25 21:07 White Blood Count 6.9 10^3/uL (4.4-10.8) Departure 1 Departure Time of Disposition: 23:38 Impression: Primary Impression: Malignant hypertension Additional Impression: Unstable angina Disposition: ADMITTED INPATIENT Admit to: Tele Condition: Serious Discharged With: Self Critical Care Note Critical Care Time?: Yes (30 min-critical care time only) Critical care comment: Total critical care time: Approximately 55minutes Due to a high probability of clinically significant, life threatening deterioration, the patient required my highest level of preparedness to intervene emergently and I personally spent this critical care time directly and personally managing the patient. This critical care time included obtaining a history; examining the patient; pulse oximetry; ordering and review of studies; arranging urgent treatment with development of a management plan; evaluation of patient's response to treatment; frequent reassessment; and, discussions with other providers. This critical care time was performed to assess and manage the high probability of imminent, life-threatening deterioration that could result in multi-organ failure. It was exclusive of separately billable procedures and treating other patients. Stability Stability form required: No Heart Score Heart Score: Heart Score Response (Comments) Value History Highly Suspicious 2 EKG Repolarization Disturb 1 Age >65 2 Risk Factors >3 or Hx ASHD 2 Troponin Normal limit 0 Total 7 I personally scribed for JOLIE BORGES MD ([facility]) on 08/27/25 at 23:26. Electronically submitted by Falguni Villasenor ([employer]). I personally scribed for JOLIE BORGES MD ([facility] on 08/27/25 at 23:29. Electronically submitted by Falguni Villasenor ([employer]). I personally scribed for JOLIE BORGES MD ([facility]) on 08/27/25 at 23:30. Electronically submitted by Falguni Villasenor ([employer]). JOLIE BORGES MD Aug 27, 2025 23:26
[2025-08-28 07:45] LABS: Urine Protein, UAD Negative (Negative)
[2025-08-28] MEDS ORDERED: SODI10PA PO (11:28)
[2025-08-28] MEDS ORDERED: VERI2.5T PO (11:28)
[2025-08-28] MEDS ORDERED: ESOM40CA83 PO (11:28)
[2025-08-28] MEDS ORDERED: CELE1CAP29 PO (11:28)
== END 2025-08-28 07:27 | disposition left against medical advice (07) ==
LOC: EDUNIT# 19:11 → EDBD 19:11 → ER 19:11
DX: I10 Essential (primary) hypertension (principal); I25.110 Atherosclerotic heart disease of native coronary artery with unstable angina pectoris; E78.5 Hyperlipidemia, unspecified; E11.9 Type 2 diabetes mellitus without complications; Z87.440 Personal history of urinary (tract) infections; Z98.61 Coronary angioplasty status; Z98.51 Tubal ligation status; Z90.49 Acquired absence of other specified parts of digestive tract
CPT/HCPCS: 36415; 71045; 80048; 84484; 85025